=== PATIENT | female | born 1980 | race Caucasian/White ===

== ENCOUNTER 2019-01-24 06:43 | Observation (INO) ==
[2019-01-24] MEDS ORDERED: SODIUM CHLORIDE 1,000 ML IV STA ×2 (07:10→07:49)
[2019-01-24] MEDS ORDERED: ZOFRAN 4 MG/2 ML IVP STA (07:43)
--- NOTE | 2019-01-24 08:55 | CT ---
EXAM: CT abdomen pelvis with contrast HISTORY: Nausea, vomiting, diarrhea 3 days COMPARISON: None TECHNIQUE: CT abdomen pelvis performed with intravenous contrast. Coronal and sagittal reformatted images obtained. FINDINGS: Please refer to separate report CT chest regarding findings in the lower chest. No free a ir. No acute abnormalities of the bones. Mild degenerative change in the spine. Liver decreased in attenuation, consistent with hepatic steatosis, with areas of fatty sparing. Liver is enlarged. Ga llbladder unremarkable. Pancreas unremarkable. Spleen unremarkable. Adrenals unremarkable. No hyd ronephrosis. Sub centimeter hypodensity right kidney, too small to characterize. Bladder unremarkab le. Uterus unremarkable. 1.8 cm ovarian cyst or follicle. Small fat-containing periumbilical herni a. No lymphadenopathy or ascites. Stomach unremarkable. No dilated loops small bowel. Appendix ap pears normal. Colon unremarkable. No inflammatory stranding identified in the abdomen or pelvis. IMPRESSION: 1. No acute inflammatory process identified in the abdomen or pelvis. 2. Hepatic steatosis. Hepatomegaly. 3. 1.8 cm right ovarian cyst or follicle.
--- NOTE | 2019-01-24 09:02 | CT ---
EXAM: CTA CHEST HISTORY: Chest pain TECHNIQUE: CTA chest with intravenous contrast. PE protocol. Multiplanar images were provided with 3-D reconstructions. FINDINGS: No comparison. No pulmonary arterial filling defects are identified. Thoracic aorta is within normal limits. Judie l heart size. No pericardial effusion is seen. No consolidated pneumonia, vascular congestion, pneumothorax or pleural fluid. There is a 6.1 mm ant erior left apical pulmonary nodule which appears to have at least partial calcification. There is a high density 4.5 mm nodule near the midportion of the left major fissure in the upper aspect of the l ower lobe axial image 35. There is a tiny micro nodule measuring 3 mm in the posterior right upper l obe near the apex. The bones reveal no acute abnormality. There is subtle scoliosis. Osteophytic spurring in the mid t horacic spine is noted. See also same day CT abdomen and pelvis report. IMPRESSION: 1. No pulmonary arterial thromboembolism is identified. 2. Lungs are free of infiltrate. 3. A few scattered pulmonary nodules may represent evidence of old granulomatous disease. If the pa tient has risk factors for neoplasia, follow-up CT in 4 to 6 months can be considered.
--- NOTE | 2019-01-24 09:05 | ED.PDOC ---
General ED Provider: Dr. VASILIY MANZANO Chief Complaint: Nausea/Vomiting Stated Complaint: chest pain and abdominal pain Time Seen by Physician: 07:00 (nurse present) Mode of Arrival: Walk-In Information Source: Patient Exam Limitations: No limitations Primary Care Provider: CHARLEEN NEWMAN Nursing and Triage Documentation Reviewed and Agree: Yes Does patient meet sepsis criteria?: No System Inflammatory Response Syndrome: Not Applicable Sepsis Protocol: For patient's 13 years and over: Temp is 96.8 and below OR 101 and greater Pulse >90 BPM Resp >20/minute Acutely Altered Mental Status Are patient's symptoms suggestive of a new infection, such as: -Pneumonia -Skin, Soft Tissue -Endocarditis -UTI -Bone, Joint Infection -Implantable Device -Acute Abdominal Infection -Wound Infection -Meningitis -Blood Stream Catheter Infection -Unknown GI Complaint Exam - Abdominal Pain Complaint/Exam Onset: Gradual (no pelvic exam done) Duration: 3 days Symptoms Are: Still present Timing: Intermittent Initial Severity: Moderate Current Severity: Moderate Location of Pain: Suprapubic Character: Reports: Aching Aggravating: Reports: None Alleviating: Reports: None Associated Signs and Symptoms: Reports: Nausea (had had intermittent chest pain with no radiation.). Denies: Diaphoresis, Fever, Cough, Chest pain, Dizziness , Back pain, Constipation, Blood in stool, Dysuria, Urinary frequency, Decreased urine output, Decreased appetite, Vaginal bleeding, Vaginal discharge , Vomiting, Diarrhea, Sore throat, Decreased activity AAA Risk Factors: Reports: None Cardiac Risk Factors: Reports: None Ectopic Risk Factors: Reports: None Ovarian Torsion Risk Factors: Reports: None Surgical Obstruction Risk Factors: Reports: None Related Surgical History: Reports: None Patient Rh Status: Unknown Abdominal Findings: Present: None Differential Diagnoses: Appendicitis, Bowel Obstruction, Constipation, Gastroenteritis, Hepatitis, Pancreatitis, Irritable Bowel Syndrome, Pneumonia, Renal Colic, Ureteral Stone, UTI, Ovarian Cyst Quality Indicators for AMI: EKG in 10min. Quality Indicators for Cardiac Chest Pain: EKG in 10min. Review of Systems - Review Of Systems Constitutional: Reports: No symptoms Eyes: Reports: No symptoms Ears, Nose, Mouth, Throat: Reports: No symptoms Respiratory: Reports: No symptoms Cardiac: Reports: Chest pain GI: Reports: Abdominal pain, Nausea, Poor appetite, Poor fluid intake : Reports: No symptoms Musculoskeletal: Reports: No symptoms Skin: Reports: No symptoms Neurological: Reports: No symptoms Endocrine: Reports: No symptoms Hematologic/Lymphatic: Reports: No symptoms All Other Systems: Reviewed and Negative Past Medical History - Past Medical History Previously Healthy: Yes Endocrine: Reports: DM 2 Cardiovascular: Reports: None Respiratory: Reports: None Hematological: Reports: None Gastrointestinal: Reports: None Genitourinary: Reports: None Neuro/Psych: Reports: None Musculoskeletal: Reports: None Cancer: Reports: None Last Menstrual Period: 01/13/19 - Surgical History General Surgical History: Reports: None - Family History Family History: Reports: None - Social History Smoking Status: Former smoker Hx Substance Use: No Alcohol Screening: None - Immunizations Tetanus Shot up to Date: (UNKNOWN) Physical Exam - Physical Exam Appearance: Ill-appearing Ill-appearing: Mild Pain Distress: Mild Eyes: LIN, EOMI, Conjunctiva clear ENT: Ears normal, Nose normal, Oropharynx normal Respiratory: Airway patent, Breath sounds clear, Breath sounds equal, Respirations nonlabored Cardiovascular: RRR, Pulses normal, No rub, No murmur GI/: Tender (diffuse ), Bowel sounds hypoactive (no rebound or gaurding) Musculoskeletal: Normal strength, ROM intact, No edema, No calf tenderness Skin: Warm, Dry, Normal color Neurological: Sensation intact, Motor intact, Reflexes intact, Cranial nerves intact, Alert, Oriented Psychiatric: Affect appropriate, Mood appropriate Interpretation - Radiology Interpretation Radiology Interpretation By: Radiologist Radiology Results: Positive (fatty liver) Re-Evaluation - Re-Evaluation Time of Re-Evaluation: 09:00 Status: Improved Vital Signs Stable: Yes Appearance: NAD Lungs: Clear Skin: Warm and Dry Neuro: Alert and Oriented X3 CV: RRR - Re-Evaluation Time of Re-Evaluation: 09:11 Status: Improved Vital Signs Stable: Yes Pain Level: headache adressed Appearance: NAD Skin: Warm and Dry Neuro: Alert and Oriented X3 CV: RRR Physician Notification - Case Discussed Physician Notified: pmd Time of Notification: 09:11 Admit/Transition Orders Entered by ED Provider: Yes Admit To: Inpatient Critical Care Note - Critical Care Note Total Time (mins): 0 Course - Course Hematology/Chemistry: 01/24/19 07:20 01/24/19 07:20 Orders, Labs, Meds: Lab Review 01/24/19 01/24/19 01/24/19 07:00 07:20 07:20 WBC 11.93 H RBC 4.78 Hgb 14.3 Hct 42.8 MCV 89.5 MCH 29.9 MCHC 33.4 RDW Coeff of Neha 12.0 Plt Count 247 Immature Gran % (Auto) 0.6 Neut % (Auto) 82.6 Lymph % (Auto) 11.1 Cuming % (Auto) 4.8 Eos % (Auto) 0.6 Baso % (Auto) 0.3 Immature Gran # (Auto) 0.1 Neut # (Auto) 9.9 H Lymph # (Auto) 1.3 Cuming # (Auto) 0.6 Eos # (Auto) 0.1 Baso # (Auto) 0.0 Sodium 137.7 Potassium 3.61 Chloride 101.5 Carbon Dioxide 26.2 Anion Gap 13.61 BUN 9.8 Creatinine 0.76 Estimated GFR (MDRD) 85.00 BUN/Creatinine Ratio 12.89 Glucose 305.2 H Lactic Acid Calcium 9.75 Total Bilirubin 0.74 AST 30.4 ALT 35.4 H Alkaline Phosphatase 101.8 Total Creatine Kinase 58.1 Troponin I < 0.012 Total Protein 8.09 Albumin 4.60 Globulin 3.49 Albumin/Globulin Ratio 1.31 Amylase 45.9 Lipase 35.3 Procalcitonin Serum , Qual Urine Color Yellow Urine Clarity Cloudy Urine pH 5.5 Ur Specific Barney 1.025 Urine Protein 1+ Urine Glucose (UA) 2+ Urine Ketones Trace Urine Blood Trace-intact Urine Nitrite Negative Urine Bilirubin 1+ Urine Urobilinogen 0.2 Ur Leukocyte Esterase 1+ Urine Microscopic RBC 2-5 Urine Microscopic WBC 5-10 Ur Squamous Epith Cells 30-50 Amorphous Sediment 2+ Urine Bacteria 2+ Urine Mucus 1+ 01/24/19 01/24/19 01/24/19 07:20 07:20 07:20 WBC RBC Hgb Hct MCV MCH MCHC RDW Coeff of Neha Plt Count Immature Gran % (Auto) Neut % (Auto) Lymph % (Auto) Cuming % (Auto) Eos % (Auto) Baso % (Auto) Immature Gran # (Auto) Neut # (Auto) Lymph # (Auto) Cuming # (Auto) Eos # (Auto) Baso # (Auto) Sodium Potassium Chloride Carbon Dioxide Anion Gap BUN Creatinine Estimated GFR (MDRD) BUN/Creatinine Ratio Glucose Lactic Acid 1.82 Calcium Total Bilirubin AST ALT Alkaline Phosphatase Total Creatine Kinase Troponin I Total Protein Albumin Globulin Albumin/Globulin Ratio Amylase Lipase Procalcitonin < 0.05 Serum , Qual Negative Urine Color Urine Clarity Urine pH Ur Specific Barney Urine Protein Urine Glucose (UA) Urine Ketones Urine Blood Urine Nitrite Urine Bilirubin Urine Urobilinogen Ur Leukocyte Esterase Urine Microscopic RBC Urine Microscopic WBC Ur Squamous Epith Cells Amorphous Sediment Urine Bacteria Urine Mucus Orders Category Date Time Status EKG-(ED ONLY) Stat CARDIO 01/24/19 07:09 Completed NPO REMINDER: IMAGING ONCE CARE 01/24/19 07:10 Active NPO REMINDER: IMAGING ONCE CARE 01/24/19 07:15 Active ED IV/MEDIPORT/POWERPORT .ONCE EMERGENCY 01/24/19 07:09 Active AMYLASE Stat LAB 01/24/19 07:20 Completed CBC W/ AUTO DIFF Stat LAB 01/24/19 07:20 Completed COMPREHENSIVE METABOLIC PANEL Stat LAB 01/24/19 07:20 Completed CREATINE KINASE Stat LAB 01/24/19 07:20 Completed LACTIC ACID Stat LAB 01/24/19 07:20 Completed LIPASE Stat LAB 01/24/19 07:20 Completed PROCALCITONIN Stat LAB 01/24/19 07:20 Completed SERUM Stat LAB 01/24/19 07:20 Completed TROPONIN I Stat LAB 01/24/19 07:20 Completed URINALYSIS C & S IF INDICATED Stat LAB 01/24/19 07:00 Completed URINE CULTURE Stat LAB 01/24/19 07:00 Received 0.9 % Sodium Chloride [Saline Flush] MEDS 01/24/19 07:09 Active 1 syr IVF PRN PRN Ondansetron HCl/Pf [Zofran 4 mg/2 ml] MEDS 01/24/19 07:43 Discontinued 4 mg IVP ONCE STA Sodium Chloride 0.9% [Sodium Chloride] 1,000 ml MEDS 01/24/19 07:[address] ABDOMEN/PELVIS W CONTRAST Stat RADS 01/24/19 07:[address] CHEST PE PROTOCOL Stat RADS 01/24/19 07:15 Completed Medications Generic Name Dose Route Start Last Admin Trade Name Freq PRN Reason Stop Dose Admin Sodium Chloride 1 syr 01/24/19 07:09 01/24/19 07:50 Saline Flush IVF 1 syr PRN PRN Administration To flush IV Discontinued Medications Generic Name Dose Route Start Last Admin Trade Name Freq PRN Reason Stop Dose Admin Sodium Chloride 1,000 mls @ 1,000 mls/hr 01/24/19 07:49 01/24/19 07:51 Sodium Chloride IV 01/24/19 08:48 1,000 mls/hr BOLUS STA Administration Ondansetron HCl 4 mg 01/24/19 07:43 01/24/19 07:49 Zofran 4 Mg/2 Ml IVP 01/24/19 07:44 4 mg ONCE STA Administration Vital Signs: Temp Pulse Resp BP Pulse Ox 01/24/19 06:44 98.2 F 94 H 20 137/96 H 97 Departure - Departure Time of Disposition: 09:11 Disposition: ADMITTED INPATIENT Discharge Problem: Nausea, Fatty liver Chest pain Qualifiers: Chest pain type: unspecified Qualified Code(s): R07.9 - Chest pain, unspecified Condition: Good Pt referred to PMD for follow-up: Yes IPMP verified?: No Allergies/Adverse Reactions: Allergies No Known Drug Intolerances Adverse Reaction (Verified 01/24/19 06:55) Disposition Discussed With: Patient, Family
[2019-01-24] MEDS ORDERED: NORCO 10-325 PO STA (09:09)
[2019-01-24] MEDS ORDERED: HUMULIN R SUBCUT STA (09:16)
[2019-01-24] MEDS ORDERED: SODIUM CHLORIDE 1,000 ML IV SCH (09:30)
[2019-01-24 10:11] VITALS: BMI 48.5
[2019-01-24] MEDS: MORPHINE 4 MG/ML VIAL IVP PRN ×2 (12:01→18:34)
--- NOTE | 2019-01-24 12:26 | PCM ---
- Chief Complaint Chief Complaint: Chest pain and abdominal pain - History of Present Illness History of Present Illness: 38 yo female without current PCP saw me once on 01/17/19 w/ c/o left knee/leg pain x 8 months, worsening with time w/o injury. During that visit she was started on mobic and was instructed to return in 2 weeks. She presented to the ED this am at [address] Brennan. The patient arrived alone, ambulatory c/o abdominal pain, chest pain and N/V. Tem afebrile at 98.2, pulse 94, rr 20, bp 137/896, o2 97%. Labs completed and WBC 11.93, hgb 14.3, hct 42.8 , plt 247. CMP with sodium 137.7, cl 101.5, K+ 3.61. Cr 0.76, gfr 85. Troponin #1 was negative. Will get 2 more sets. Alk phos normal, AST 30.4 and normal, ALT 35.4 and mildly elevated. Amylase and lipase were normoal at 45.9 and 35.3. Her UA showed trace ketones, trace blood, negative nitrite. Micro rbc 2-5, wbc 5-10, squam 30-50 suggesting poor sample. Lactic acid normal at 1.82, procalc negative at 0.05. Negative test. Patient had CT of chest/abd pelvis. CTA of chest completed no PE, no infiltrate, scattered nodules of old granulomatous disease. CT abd/pelvis no acute inflammatory process. Fatty liver, enlarged Liver, 1.8cm ovarian cyst/follicle. She reported gradual onset of symptoms over last 3 days, intermittent symptoms,moderate severity,suprapubic pain, aching. Nausea, intermittent chest pain,non radiating. +Nausea. No fever. Ddx in ED was appendicitis, bowel obs, constipation, Gastroenteritis, hepatitis, pancreatitis, ibs, pneumonia, renal colic, stone, uti, ovarian cyst. ROS reviewed abdominal pain, nausea, poor appetite, poor fluid intake. Histor of DM2, apparently poorly regulated. LMP. +COBB. Exam from ER normal Resp, normal CV, tenderness in abd with hypoactive sounds. Will await culture, will treat with IV rocephin to cover for UTI. Will also check 2 more sets of enzymes, get stress test in am tomorrow. With knee pain we will use a chemical stress. Await urine culture. Patient and fiance present in room 118. MS Kale guadalupe present with me entirety of encounter. Patient complained of N/V/D, suprapubic pain and "migraine" left congregation, left occipital, left neck with trapezius tenderness on Left. She has no obvious chest pain, no anginal chest pain. NOtes some epigastric pain at times. Complicated by morbid obesity. She has no CP now, no dizziness now but has had this over the last few days. Vague symptoms to include N/V/D, upset stomach, suprapubic pain, frequency, hesitancy, burning, no vaginal discharge. Sx x 4 days, migrainous COBB which is more likely tension COBB x 2 days. 48 hours decreased PO intake. She is not checking sugars. Moved locally 07/2018 from [facility]. History of lung cancer ~11-12 years ago, unknown etiology per patient, no further f/u per patient. COBB 8/10 no photophobia, no phonophobia. + Nausea. She has had ?Gastroenteritis over the last few days. Mild dehydration is possible. NO imaging of head in last few years. She has not eaten or been out of bed in 48 hours. She tried to get to work today, got sick at work and had to leave, went to ED due to dizzy/COBB. Glucose was >300 in ED> - Review of Systems Constitutional: chills, weakness, sweats, fatigue, loss of appetite. No: fever , other Eyes: No: blurred vision, double-vision, discharge, itching, pain, redness, photophobia, other Ears: No: pain, bleeding, drainage, ringing, hearing loss, other Nose: congestion. No: bleeding, discharge, other Throat: pain. No: swelling, voice change, other Mouth: No: bleeding, pain, swelling, other Respiratory: cough, shortness of air. No: wheeze, hemoptysis, pain with breathing, other Cardiovascular: chest pain (reported in ED, not present now, poorly localized and she pointed to epigastric region. ). No: left arm pain, diaphoresis, PND, orthopnea, edema, palpitations, syncope, other Gastrointestinal: abdominal pain, nausea, vomiting, diarrhea. No: other, melena , hematemesis, hematochezia, dysphagia, constipation Genitourinary: dysuria, hematuria, frequency, incontinence. No: flank pain, vaginal discharge, abnormal bleeding, pelvic pain, other Neurological: headache, dizziness. No: other, seizure, numbness, weakness, speech difficulty, problems with walking, tremor, fainting Musculoskeletal: No: pain, swelling in joints, other Skin: No: rash, pruritus, lacerations, wounds, bruising, other Immunology: No: hives, itching, frequent infections, difficulty healing, other Hematology: No: easy bruising, easy bleeding, swollen glands, other Endocrine: No: weight changes, cold intolerance, heat intolerance, excessive thirst, excessive hunger, polyuria, other Psychiatric: No: depression, anxiety, sleeplessness, hopelessness, suicidal, hallucinations, other Habits: tobacco use (former user, no tobacconow. ). No: substance use, alcohol use, other - Past Medical History Past Medical History: Cancer of l chandan, diabetes mellitus, obesity BMI 48.5. - Past Surgical History Past Surgical History: CS x 3 and D+C - Allergies Allergies/Adverse Reactions: Allergies Allergy/AdvReac Type Severity Reaction Status Date / Time No Known Drug Intolerances AdvReac Verified 01/24/19 06:55 - Medications Medications: Medications Generic Name Dose Route Start Last Admin Trade Name Freq PRN Reason Stop Dose Admin Sodium Chloride 1,000 mls @ 75 mls/hr 01/24/19 09:30 01/24/19 09:54 Sodium Chloride IV 75 mls/hr .[id number] ANUSHA Administration Morphine Sulfate 4 mg 01/24/19 11:03 01/24/19 12:01 Morphine 4 Mg/Ml Vial IVP 4 mg Q6H PRN Administration MODERATE PAIN Sodium Chloride 1 syr 01/24/19 07:09 01/24/19 07:50 Saline Flush IVF 1 syr PRN PRN Administration To flush IV - Family History Past Family History: Mother: allergic rhinitis. cardiac disease, diabetes, HTN, hyperthyroid. Father: Cardiac disease, HTN. MGM: Blood disease, Diabetes, cancer. Brother: Diabetes. PGM: Diabetes, cancer. PGF: Diabetes - Social History Past Social History: Former smoker, no substance use. No ETOH. - Body Composition Height: 5 ft 6 in Weight: 300 lb 9.6 oz Body Mass Index (BMI): 48.5 - Physical Examination HEENT: Vital Signs - 24 hr 01/24/19 01/24/19 01/24/19 06:44 09:38 14:00 Temperature 98.2 F 97.7 F 98.0 F Pulse Rate 94 H 82 70 Pulse Rate [ 80 Apical] Respiratory 20 18 16 Rate Blood Pressure 137/96 H 119/71 O2 Sat by Pulse 97 100 94 L Oximetry Constitutional: Appearance-Appears to be in pain acute distress, Consistent with stated age. Orientation- Oriented x 3, alertGait-Normal pace, normal arm movement. Build and Nutrition-[morbidly obese BMI 48.5.] General- Patient is pleasant and cooperative with the interview and exam. Integumentary: General-No rashes, ulcers or lesions. Palpation- Normal skin moisture/turgor. Skin is warm to touch, appropriate. Capillary refill is normal bilateral Upper and lower extremity. Head/Neck: Head- normocephalic and atraumatic. Neck- without visible/palpable lumps or pulsations. Palpation- No bony tenderness about head/neck along frontal, occipital, temporal, parietal, mastoid, jawline, zygoma, orbit or any other location. NO temporal artery tenderness. No TMJ tenderness. Neck Supple. Thyroid-No thyromegaly, no nodules Eye: Bilaterally PERRLA, EOMI. No discharge. Upper and lower eyelids are normal. Sclera/conjunctiva normal without discharge. Cornea is normal and clear. Lens is normal. Eyeball appears normal. No ciliary flushing, no conjunctival injection. ENMT: Pinna- normal without tenderness or erythema. External auditory canal Left- normal without erythema or discharge, no excessive cerumen. External auditory canal Right-normal without erythema or discharge, no excessive cerumen. TM left- Bhakta/pearly, normal light reflex and anatomy TM Right- Bhakta/ pearly, normal light reflex and anatomy Hearing Assessment-normal to conversational speech. Nose and sinus- No sinus tenderness along frontal/ maxillary region. External appearance normal and midline. Nares- bilateral quiet airflow, no discharge. Nasal mucosa- No bleeding noted and no ulcerations observed. Clover, moist. Turbinates non boggy. Lips- normal color, moist without cracks/lesions Oral Cavity/Palate- hard/soft palate intact without lesions, oral mucosa pink and moist. Oropharynx- no pharyngeal erythema, Uvula midline. No post nasal drip. No exudate. Salivary glands- Non tender to palpation CHEST/LUNG: Inspection- symmetric chest wall no pectus deformity. Normal effort , no distress, no use of accessory muscles. Palpation- nontender sternum,tender along second intercostal space through fourth intercostal space anterior clavicular line. No abnormal pulsations. Auscultation- Breath sounds normal throughout all lung phelan. Normal tracheal sounds, Normal bronchial sounds overlying sternum, Bronchovessicular sounds normal between scapulae posteriorly , Normal vessicular breath sounds heard throughout periphery. Lungs are clear today. Adventitious sounds- No wheezes, rales, rhonchi. CARDIOVASCULAR: Carotid artery- normal, no bruits or abnormal pulsations. Jugular vein- no pulsations. Palpation/Percussion- Normal PMI, no palpable thrill Auscultation- Regular rate and rhythm. No murmur noted in sitting, supine positions. Extremities- no digital clubbing, cyanosis, edema, increased warmth. ABDOMEN: Inspection- normal and no visible pulsations. Normal contour. Auscultation- Bowel sounds normal, no abdominal bruits. Palpation/Percussion- soft, tender suprapubic tenderness, no rebound tenderness, no rigidity (guarding ), no jar tenderness, no masses. Liver- hepatomegaly, 3 fingers below costal margin difficult exam secondary to habitus. Spleen no splenomegaly, Hernias- none. Rectal not examined. Peripheral Vascular: Upper extremity Left- Normal temperature with pink nailbeds and no ulcerations. Upper extremity Right- Normal temperature with pink nailbeds and no ulcerations. Lower extremity- Normal temperature with pink nailbeds and no ulcerations. DP pulses 2+ bilaterally. Pedal hair intact. Normal capillary refill. Edema- No edema. Musculoskeletal: Generalized-No generalized swelling or edema of extremities, no digital clubbing or cyanosis, neurovascularly intact all four extremities. Upper extremity- Symmetrical posture. No visible deformity. Normal sensation along medial and lateral upper extremity proximally and distally. NO tenderness overlying shoulder, lateral/medial epicondyle. Business Account Executive 5/5 and strength 5/5 bilateral UE. Elbow palpated, no tenderness overlying olecranon. Normal supination, pronation to active/passive ROM and to resisted rotation. Bicep insertion/tricep insertion appear normal without obvious pathology. Rotator cuff evaluated and intact. Normal wrist ROM bilaterally. Normal hand movement, intrinsic muscles of hands normal. No tenderness to palpation of hands/wrists/ elbows. Lower extremity- Hip: Not tender to palpation, no pain, no swelling, edema or erythema of surrounding tissue, normal strength and tone. Normal appearing hip ROM bilaterally without pain. Knee: Knee ROM normal. No tenderness overlying trochanters, no tenderness about patella, quad tendon, patellar tendon. No tenderness at tibial tuberosity. Ankle: normal ROM not tender to palpation along medial/lateral malleolus. Foot: Normal movement of toes, no tenderness bilateral feet/toes. Normal foot type. Spine/Ribs- No deformities, masses. Localized paraspinal tenderness, no known fractures, normal strength, Normal ROM. Normal stability No tenderness along C/T /L spine. Normal appearing ROM about spine. Neurological: General- Moves all 4 extremities symmetrically. Symmetrical face and body posture. Cranial nerves- individually evaluated II-XII and intact. PERRLA, Normal EOMI, visual/special senses appear intact, Face is symmetrical and normal sensation/movement, normal tongue, normal strength/posture of neck musculature. Reflexes- intact with DTR 2+ patellar, Achilles, bicep, brachial, tricep. Ankle clonus normal with 2 beats. Strength- 5/5 bilateral UE and LE. Soft touch- intact bilateral UE and LE. Temperature sensation- intact bilateral UE and LE. Neuropsych: Oriented- Person, place, time. (AAOx3), Mood/affect- normal and congruent. Able to articulate well. Speech-Normal speech, normal rate, normal tone, normal use of language, volume and coherence. Thought content- normal with ability to perform basic computations and apply abstract thought/reason. Associations- intact, no SI/HI, no hallucinations, delusions, obsessions. Judgment/insight- Appropriate. Memory-Recall intact, remote and recent memory intact. Knowledge- Age appropriate fund of knowledge, concentration and attention span normal. Lymphatic: Head/Neck- normal size and non tender to palpation. Axillary- normal size and non tender to palpation. Femoral and Inguinal- normal size and non tender to palpation. - Lab/Tests/Diagnostic Imaging Lab/Tests/Diagnostic Imaging: Laboratory Tests 01/24/19 01/24/19 01/24/19 07:00 07:20 07:20 WBC 11.93 H RBC 4.78 Hgb 14.3 Hct 42.8 MCV 89.5 MCH 29.9 MCHC 33.4 RDW Coeff of Neha 12.0 Plt Count 247 Immature Gran % (Auto) 0.6 Neut % (Auto) 82.6 Lymph % (Auto) 11.1 [place] % (Auto) 4.8 Eos % (Auto) 0.6 Baso % (Auto) 0.3 Immature Gran # (Auto) 0.1 Neut # (Auto) 9.9 H Lymph # (Auto) 1.3 [place] # (Auto) 0.6 Eos # (Auto) 0.1 Baso # (Auto) 0.0 Sodium 137.7 Potassium 3.61 Chloride 101.5 Carbon Dioxide 26.2 Anion Gap 13.61 BUN 9.8 Creatinine 0.76 Estimated GFR (MDRD) 85.00 BUN/Creatinine Ratio 12.89 Glucose 305.2 H Lactic Acid Calcium 9.75 Total Bilirubin 0.74 AST 30.4 ALT 35.4 H Alkaline Phosphatase 101.8 Total Creatine Kinase 58.1 Troponin I < 0.012 Total Protein 8.09 Albumin 4.60 Globulin 3.49 Albumin/Globulin Ratio 1.31 Amylase 45.9 Lipase 35.3 Procalcitonin Serum , Qual Urine Color Yellow Urine Clarity Cloudy Urine pH 5.5 Ur Specific [place] 1.025 Urine Protein 1+ Urine Glucose (UA) 2+ Urine Ketones Trace Urine Blood Trace-intact Urine Nitrite Negative Urine Bilirubin 1+ Urine Urobilinogen 0.2 Ur Leukocyte Esterase 1+ Urine Microscopic RBC 2-5 Urine Microscopic WBC 5-10 Ur Squamous Epith Cells 30-50 Amorphous Sediment 2+ Urine Bacteria 2+ Urine Mucus 1+ 01/24/19 01/24/19 01/24/19 07:20 07:20 07:20 WBC RBC Hgb Hct MCV MCH MCHC RDW Coeff of Neha Plt Count Immature Gran % (Auto) Neut % (Auto) Lymph % (Auto) [place] % (Auto) Eos % (Auto) Baso % (Auto) Immature Gran # (Auto) Neut # (Auto) Lymph # (Auto) [place] # (Auto) Eos # (Auto) Baso # (Auto) Sodium Potassium Chloride Carbon Dioxide Anion Gap BUN Creatinine Estimated GFR (MDRD) BUN/Creatinine Ratio Glucose Lactic Acid 1.82 Calcium Total Bilirubin AST ALT Alkaline Phosphatase Total Creatine Kinase Troponin I Total Protein Albumin Globulin Albumin/Globulin Ratio Amylase Lipase Procalcitonin < 0.05 Serum , Qual Negative Urine Color Urine Clarity Urine pH Ur Specific [place] Urine Protein Urine Glucose (UA) Urine Ketones Urine Blood Urine Nitrite Urine Bilirubin Urine Urobilinogen Ur Leukocyte Esterase Urine Microscopic RBC Urine Microscopic WBC Ur Squamous Epith Cells Amorphous Sediment Urine Bacteria Urine Mucus CTA of chest completed no PE, no infiltrate, scattered nodules of old granulomatous disease. If malignancy repeat CT chest in 4-6 months. She had malignancy, I will repeat in 4-[address] abd/pelvis no acute inflammatory process. Fatty liver, enlarged Liver, 1.8cm ovarian cyst/follicle. Echo: NEgative, EF normal. Dobutamine Stress Echo, negative for ischemia. - Assessment (1) Suprapubic pain Status: Acute Code(s): R10.30 - LOWER ABDOMINAL PAIN, UNSPECIFIED SNOMED Code(s): 588519584 (2) Chest pain Status: Acute Code(s): R07.9 - CHEST PAIN, UNSPECIFIED SNOMED Code(s): 80465652 (3) Diabetes mellitus with hyperglycemia Status: Acute Code(s): E11.65 - TYPE 2 DIABETES MELLITUS WITH HYPERGLYCEMIA SNOMED Code(s): 38791164, 12570440 (4) BMI 45.0-49.9, adult Status: Acute Code(s): Z68.42 - BODY MASS INDEX (BMI) 45.0-49.9, ADULT SNOMED Code(s): 122814802, 043449200 (5) Diarrhea Status: Acute Code(s): R19.7 - DIARRHEA, UNSPECIFIED SNOMED Code(s): 56380955 (6) Nausea Status: Acute Code(s): R11.0 - NAUSEA SNOMED Code(s): 805114088 - Plan Plan: Suprapubic pain: N/V/D, dysuria, frequency and hesitancy consistent with cystitis. However with N/V/D considered Gastroenteritis in addition to pyelonephritis. CT imaging reviewed and the patient has no major findings on abd /pelvis CT. ?Ovarian cyst/mittelschmerz. DDX included UTI: Simple uncomplicated cystitis, Urethritis, vaginitis, Interstitial cystitis, also possible but less likely PID,nephrolithiasis/pyelonephritis. Discussed various ddx, discussed sexual activity and discussed treatment options. She denied hematuria, denied vaginal discharge. Discussed UTI is typically a dx of history with clinical dx more important than UA. Discussed antibiotic allergies. Will send urine for culture. We will F/U with these lab results and update medications as needed. Will treat with 5 days of abx as this seems to be more uncomplicated cystitsi. Reminded patient if taking antibiotics and using control at the same time it is important to use a backup method of control for 2-4 weeks as antibiotics can decrease efficacy of the control. - Admit to observation - Telemetry - [place] body weight/Adjusted: [place] 131 lb, adjusted 198 lb. Maintenance fluid 100-130 ml/hour. I will use 120 ml/hour overnight. - Stress test in the am (THIS WAS DONE THIS PM) - echo in the am (THIS WAS DONE THIS PM) - Rocephin 1 gram IV daily - Await urine culture. Consider d/c tomorrow with bactrim DS BID until culture returns. - CBC in am - Monitor accucheck Leukocytosis: Mild. - CBC in the am Chest Pain: DDX for chest pain is vast. We discussed typical examination in history findings for chest pain and heart attack today. We discussed that multiple organ systems can be the cause for this complaint. We reviewed possible causes to include cardiac etiologies: ACS, pericarditis, pericardial effusion, respiratory issues to include bronchitis/asthma/COPD/bronchospasm, PE (No SOA, no DU, LOW LIKELIHOOD OF PE/DVT based on Wells score 0 (1.3%)), GI problems to include esophageal spasm/achalasia, Hiatal hernia, GERD, PUD, Liver disease/pancreatic disease, renal disease. Will check labs as listed. We discussed risks and benefits to getting EKG today, we reviewed aspirin and nitroglycerin. Troponin negative x 1. This is not cardiac in nature. We will obtain 2 more sets of enzymes and stress test in the am. When negative likely d /c tomorrow. Patient actually had stress test this pm and it was normal, echo was normal. The patient likely has costochondritis as she has reproducible chest wall pain. - Cardiac Enzymes x 2 sets - Dobutamine Stress echo negative for ischemia. - Echocardiogram negative. Diabetes: Poorly controlled. A1C ordered and 8.81. She will be d/c on metformin and steglatro. We will f/u with her sugars as outpatient. We ave discussed lisinopril, we will get her a pneumonia vaccine prior to d/c. For now q 4 hours accucheck with SSI. - SSI if >200 - Q 4 hours accucheck DVT Prophylaxis: subcutaneous 40mg lovenox. Diet: ADA Diabetic. Activity: Up ad bogdan. Disposition: Suspect d/c in the am with negative stress, negative echo, vitals stable, labs look good. Diabetes is out of control but <10 for A1C. Abdominal pain could be from ovulation pain, could be from UTI. Pat rendon, consider d/c with bactrim DS tomorrow BID x 5 days. >70 minutes spent on this admission today.
[2019-01-24] MEDS ORDERED: LOVENOX SUBCUT SCH (12:37)
[2019-01-24] MEDS ORDERED: ROCEPHIN 1 GM PREMIX 1 GM in PREMIX 50 ML D5W 1 BAG IV SCH (13:00)
[2019-01-24] MEDS ORDERED: DOBUTAMINE 500 MG-D5W 250 ML 250 ML IV ONE (13:07)
[2019-01-24] MEDS ORDERED: ATROPINE SULFATE PFS ONE (13:07)
--- NOTE | 2019-01-24 14:18 | DOBSTECHO ---
Date of Test: 01/24/19 Ordering Physician: DR. CHARLEEN NEWMAN Smoking History: QUIT 11 YRS AGO Reason for Examination: CHEST PAIN, HX LUNG CA, DM2, LOCALIZED CHEST PAIN 2ND INTERCOSTAL SPACE Current Medications: MELOXICAM Height: 66" Weight: 300 LBS Target Heart Rate: 153/181 S-T Segment Stage Time HR BPM BP MMHG Rhythm +/- Elevation Depression Symptoms Control Sitting 68 132/92 SR X NONE Dobutamine 250mg/D5W 5cmg/KG/mn 10cmg/KG/mn 3:00 85 138/100 SR X NONE 15cmg/KG/mn 1:27 111 SR X NONE 20cmg/KG/mn 25cmg/KG/mn 30cmg/KG/mn 35cmg/KG/mn 40cmg/KG/mn 3 MIN POST INFUSION z 75 168/98 SR X ELEVATED BLOOD PRESSURE WITH DOBUTAMINE 9 MIN POST INFUSION z 60 128/92 SR X DURATION OF INFUSION 4:27 MAXIMUM HEART RATE REACHED 111 BPM Interpretation: 1. NO EVIDENCE OF ISCHEMIA FROM RESTING HEART RATE 68 BPM TO 111 BPM 2. NO CHEST PAIN OR DISCOMFORT EXCEPT FOR CONSISTENT LOCALIZED PAIN, 2ND INTERCOSTAL SPACE 3. NO ARRHYTHMIAS NORMAL LEFT VENTRICULAR CONTRACTILITY--RESTING AND POST EXERCISE MTDD
--- NOTE | 2019-01-24 14:21 | ECHOSTRESS ---
Date of Exam: 01/24/19 Ordering Physician: DR. CHARLEEN NEWMAN Reason for Echo: CHEST PAIN, HX LUNG CA, DM2, DOBUTAMINE STRESS--NO ISCHEMIA M-Mode Normal Adult Results LV Dimensions Normal Adult Results AoV Opening excursions >1.6 LVEDD-base- 3.5-5.8 Ao root dimensions 2.0-3.7 LVESD-base- 3.1-4.6 L. Atrium dimensions 1.9-3.8 Post. Wall thickness 0.8-1.1 IV septum (thickness) 0.7-1.2 Post. Wall excursion 0.72-1.3 Septal motion Systolic motion R. Ventricular cavity 1.5-2.0 LVEF 60% Paradoxical septal wall motion 2-D: NORMAL LEFT VENTRICULAR CONTRACTILITY--RESTING AND WITH DOBUTAMINE INFUSION M-MODE: MV: AV: TV: PV: CHAMBER SIZE: WALL MOTION: NORMAL LEFT VENTRICULAR CONTRACTILITY--RESTING AND WITH DOBUTAMINE INFUSION PERICARDIUM: INTERPRETATION: 1. NORMAL LEFT VENTRICULAR CONTRACTILITY--RESTING AND WITH DOBUTAMINE INFUSION MTDD
--- NOTE | 2019-01-24 14:26 | ECHO2D ---
Date of Exam: 01/24/19 Ordering Physician: DR. CHARLEEN NEWMAN Room #: 118 Reason for Echo: CHEST PAIN, HX LUNG CA, DM2 M-Mode Normal Adult Results LV Dimensions Normal Adult Results AoV Opening excursions >1.6 >1.6 LVEDD-base- 3.5-5.8 4.5 Ao root dimensions 2.0-3.7 3.8 LVESD-base- 3.1-4.6 L. Atrium dimensions 1.9-3.8 4.2 Post. Wall thickness 0.8-1.1 1.3 IV septum (thickness) 0.7-1.2 1.2 Post. Wall excursion 0.72-1.3 NORMAL Septal motion NORMAL Systolic motion R. Ventricular cavity 1.5-2.0 NORMAL LVEF 60% 50 -55% Paradoxical septal wall motion NORMAL 2-D : 2-D M Mode Echocardiogram was performed using apical four chamber and left parasternal long and short axis views. Mitral, tricuspid and aortic valves appear to be normal. Contractility of the left ventricle seems to be normal, so is the cavity size. ENLARGED LEFT ATRIAL CAVITY. Aortic root appears to be normal. There is no pericardial effusion. There is no thrombus noted in the left ventricular or left aortic cavity. No mitral valve prolapse noted. M-MODE: MV: NORMAL AV: NORMAL TV: NORMAL PV: CHAMBER SIZE: ENLARGED LEFT ATRIAL CAVITY WALL MOTION: NORMAL PERICARDIUM: NORMAL INTERPRETATION: 1. BORDERLINE LEFT VENTRICULAR HYPERTROPHY WITH ENLARGED LEFT ATRIAL CAVITY 2. NORMAL LEFT VENTRICULAR CONTRACTILITY 3. NORMAL VALVES MTDD
--- NOTE | 2019-01-24 17:08 | CT ---
EXAM: CT Head HISTORY: Headache COMPARISON: None TECHNIQUE: CT head performed without contrast FINDINGS: There is no mass effect, midline shift, or intracranial hemmorhage. Bhakta white differenti ation is preserved. There is no extra-axial collection. The ventricles, sulci, and basal cisterns a re patent and symmetric. There is no depressed calvarial fracture. The mastoid air cells are clear. The visualized paranasal sinuses are clear. IMPRESSION: No acute intracranial abnormality.
[2019-01-24] MEDS: SODIUM CHLORIDE 1,000 ML IV SCH ×2 (19:05→23:07)
[2019-01-24 21:40] VITALS: TEMP 97.9
[2019-01-25 05:15] VITALS: BP 123/77
--- NOTE | 2019-01-25 07:42 | PCM.DC ---
Final Diagnosis: Chest pain (Acute): NON CARDIAC, RESOLVED Diabetes mellitus with hyperglycemia (Chronic): Poorly controlled Diarrhea (RESOLVED) Nausea (RESOLVED) Suprapubic pain (IMPROVING): ON abx, awaiting culture. Headache (Acute): Resolved. Morbid obesity: (1) Suprapubic pain Status: Acute Code(s): R10.30 - LOWER ABDOMINAL PAIN, UNSPECIFIED SNOMED Code(s): 712025881 (2) Chest pain Status: Acute Code(s): R07.9 - CHEST PAIN, UNSPECIFIED SNOMED Code(s): 32671120 (3) Diabetes mellitus with hyperglycemia Status: Acute Code(s): E11.65 - TYPE 2 DIABETES MELLITUS WITH HYPERGLYCEMIA SNOMED Code(s): 40622629, 82745653 (4) BMI 45.0-49.9, adult Status: Acute Code(s): Z68.42 - BODY MASS INDEX (BMI) 45.0-49.9, ADULT SNOMED Code(s): 897499114, 978980116 (5) Diarrhea Status: Acute Code(s): R19.7 - DIARRHEA, UNSPECIFIED SNOMED Code(s): 49013442 (6) Nausea Status: Acute Code(s): R11.0 - NAUSEA SNOMED Code(s): 061444140 Reason for Hospitalization: Chest pain, Headache, suprapubic pain, hyperglycemia. Prognosis at Discharge: Diabetes/sugars better controlled COBB resolved Abdominal pain N/V/D resolved Suprapubic pain improving Chest pain resolved. Condition at Discharge: Stable/improved. Maximized health with hospitalization. COBB resolved, BG better controlled, Suprapubic pain improving, chest pain resolved, afebrile throughout entirety of stay. Vitals stable. She slept well overnight, good uout, no stools in hospital stay. Echo/stress test negative, CT head negative, labs this am negative. Pending urine culture. Medications at Discharge: Ambulatory Orders Medication Instructions Recorded Ertugliflozin Pidolate [Steglatro] 5 mg PO DAILY 30 Days #30 tablet 01/25/19 Metformin HCl 1,000 mg PO DIRECTED #60 tablet 01/25/19 Sulfamethoxazole/Trimethoprim 1 tab PO Q12HR 5 Days #10 tablet 01/25/19 [Bactrim Ds 800/160 mg] Lab/Diagnostics: Laboratory Last Values WBC 9.11 K/ul (4.6-10.2) 01/25/19 04:43 RBC 4.16 10^6/ul (4.20-5.40) L 01/25/19 04:43 Hgb 12.4 g/dl (12.0-16.0) 01/25/19 04:43 Hct 37.7 % (37.0-47.0) 01/25/19 04:43 MCV 90.6 fl (81.0-99.0) 01/25/19 04:43 MCH 29.8 pg (27.0-31.0) 01/25/19 04:43 MCHC 32.9 (31.8-35.4) 01/25/19 04:43 RDW Coeff of Neha 12.3 % (11.6-14.8) 01/25/19 04:43 Plt Count 223 10^3/uL (140-440) 01/25/19 04:43 Immature Gran % (Auto) 0.5 % (0.0-5.0) 01/25/19 04:43 Neut % (Auto) 69.0 01/25/19 04:43 Lymph % (Auto) 21.8 (10.0-50.0) 01/25/19 04:43 [place] % (Auto) 6.9 (0-10) 01/25/19 04:43 Eos % (Auto) 1.4 % (0.0-7.0) 01/25/19 04:43 Baso % (Auto) 0.4 % (0.0-3.0) 01/25/19 04:43 Immature Gran # (Auto) 0.1 (0.0-1.0) 01/25/19 04:43 Neut # (Auto) 6.3 K/ul (2.0-6.9) 01/25/19 04:43 Lymph # (Auto) 2.0 K/uL (0.60-3.4) 01/25/19 04:43 [place] # (Auto) 0.6 K/uL (0.4-2.0) 01/25/19 04:43 Eos # (Auto) 0.1 K/ul (0.0-0.7) 01/25/19 04:43 Baso # (Auto) 0.0 K/uL (0-0.2) 01/25/19 04:43 Sodium 137.2 mmol/L (134.5-145) 01/25/19 04:43 Potassium 3.59 mmol/L (3.5-5.1) 01/25/19 04:43 Chloride 106.2 mmol/L (98-107) 01/25/19 04:43 Carbon Dioxide 26.5 mmol/L (22-30.0) 01/25/19 04:43 Anion Gap 8.09 01/25/19 04:43 BUN 10.4 mg/dL (7-17) 01/25/19 04:43 Creatinine 0.70 mg/dL (0.60-1.30) 01/25/19 04:43 Estimated GFR (MDRD) 93.00 mL/min 01/25/19 04:43 BUN/Creatinine Ratio 14.85 01/25/19 04:43 Glucose 183.7 mg/dL (74-106) H D 01/25/19 04:43 Hemoglobin A1c 8.81 (4.0-6.0) H 01/24/19 07:20 Lactic Acid 1.82 mmol/L (0.7-2.1) 01/24/19 07:20 Calcium 8.66 mg/dL (8.4-10.2) 01/25/19 04:43 Total Bilirubin 0.46 mg/dL (0.2-1.3) 01/25/19 04:43 AST 23.6 U/L (14-36) 01/25/19 04:43 ALT 31.5 U/L (0-35) 01/25/19 04:43 Alkaline Phosphatase 75.5 U/L (38-126) D 01/25/19 04:43 Total Creatine Kinase 41.7 U/L (30-135) 01/24/19 23:15 Troponin I < 0.012 ng/ml (0.0000-0.120) 01/24/19 23:15 Total Protein 6.43 g/dL (6.3-8.2) 01/25/19 04:43 Albumin 3.58 g/dL (3.5-5.0) 01/25/19 04:43 Globulin 2.85 01/25/19 04:43 Albumin/Globulin Ratio 1.25 01/25/19 04:43 Amylase 45.9 U/L (30-110) 01/24/19 07:20 Lipase 35.3 U/L (23-300) 01/24/19 07:20 Procalcitonin < 0.05 ng/mL (0.09) 01/24/19 07:20 Serum , Qual Negative (NEGATIVE) 01/24/19 07:20 Urine Color Yellow (YELLOW) 01/24/19 14:00 Urine Clarity Clear (CLEAR) 01/24/19 14:00 Urine pH 5.5 (5-9) 01/24/19 14:00 Ur Specific [place] 1.015 (1.005-1.030) 01/24/19 14:00 Urine Protein Negative (NEGATIVE) 01/24/19 14:00 Urine Glucose (UA) Trace (NEGATIVE) 01/24/19 14:00 Urine Ketones 1+ (NEGATIVE) 01/24/19 14:00 Urine Blood Negative (NEGATIVE) 01/24/19 14:00 Urine Nitrite Negative (NEGATIVE) 01/24/19 14:00 Urine Bilirubin Negative (NEGATIVE) 01/24/19 14:00 Urine Urobilinogen 0.2 (0.2) 01/24/19 14:00 Ur Leukocyte Esterase Negative (NEGATIVE) 01/24/19 14:00 Urine Microscopic RBC 2-5 (0-2) 01/24/19 07:00 Urine Microscopic WBC 5-10 (0-2) 01/24/19 07:00 Ur Squamous Epith Cells 30-50 (0-5) 01/24/19 07:00 Amorphous Sediment 2+ (NOT PRESENT) 01/24/19 07:00 Urine Bacteria 2+ (NOT PRESENT) 01/24/19 07:00 Urine Mucus 1+ (NOT PRESENT) 01/24/19 07:00 CTA of chest completed no PE, no infiltrate, scattered nodules of old granulomatous disease. If malignancy repeat CT chest in 4-6 months. She had malignancy, I will repeat in 4-[address] abd/pelvis no acute inflammatory process. Fatty liver, enlarged Liver, 1.8cm ovarian cyst/follicle. Echo: NEgative, EF normal. Dobutamine Stress Echo, negative for ischemia. CT head: Negative for acute process. Urine culture negative to date. Education Provided to Patient and Family: 1. Steglatro 2. Metformin 3. Diabetes 4. Weight Loss 5. Blood sugar checks Follow-ups: 1. Keep appt with Dr. Peguero on 02/02/19. Disposition: HOME SELF-CARE Hospital Course: 38 yo female without current PCP saw me once on 01/17/19 w/ c/o left knee/leg pain x 8 months, worsening with time w/o injury. During that visit she was started on mobic and was instructed to return in 2 weeks. She presented to the ED this am at [address] Brennan. The patient arrived alone, ambulatory c/o abdominal pain, chest pain and N/V. Tem afebrile at 98.2, pulse 94, rr 20, bp 137/896, o2 97%. Labs completed and WBC 11.93, hgb 14.3, hct 42.8 , plt 247. CMP with sodium 137.7, cl 101.5, K+ 3.61. Cr 0.76, gfr 85. Troponin #1 was negative. Will get 2 more sets. Alk phos normal, AST 30.4 and normal, ALT 35.4 and mildly elevated. Amylase and lipase were normoal at 45.9 and 35.3. Her UA showed trace ketones, trace blood, negative nitrite. Micro rbc 2-5, wbc 5-10, squam 30-50 suggesting poor sample. Lactic acid normal at 1.82, procalc negative at 0.05. Negative test. Patient had CT of chest/abd pelvis. CTA of chest completed no PE, no infiltrate, scattered nodules of old granulomatous disease. CT abd/pelvis no acute inflammatory process. Fatty liver, enlarged Liver, 1.8cm ovarian cyst/follicle. She reported gradual onset of symptoms over last 3 days, intermittent symptoms,moderate severity,suprapubic pain, aching. Nausea, intermittent chest pain,non radiating. +Nausea. No fever. Ddx in ED was appendicitis, bowel obs, constipation, Gastroenteritis, hepatitis, pancreatitis, ibs, pneumonia, renal colic, stone, uti, ovarian cyst. ROS reviewed abdominal pain, nausea, poor appetite, poor fluid intake. Histor of DM2, apparently poorly regulated. LMP. +COBB. Exam from ER normal Resp, normal CV, tenderness in abd with hypoactive sounds. Will await culture, will treat with IV rocephin to cover for UTI. Will also check 2 more sets of enzymes, get stress test in am tomorrow. With knee pain we will use a chemical stress. Await urine culture. Patient and fiance present in room 118. MS Kale guadalupe present with me entirety of encounter. Patient complained of N/V/D, suprapubic pain and "migraine" left advent, left occipital, left neck with trapezius tenderness on Left. She has no obvious chest pain, no anginal chest pain. NOtes some epigastric pain at times. Complicated by morbid obesity. She has no CP now, no dizziness now but has had this over the last few days. Vague symptoms to include N/V/D, upset stomach, suprapubic pain, frequency, hesitancy, burning, no vaginal discharge. Sx x 4 days, migrainous COBB which is more likely tension COBB x 2 days. 48 hours decreased PO intake. She is not checking sugars. Moved locally 07/[address] [facility]. History of lung cancer ~11-12 years ago, unknown etiology per patient, no further f/u per patient. COBB 8/10 no photophobia, no phonophobia. + Nausea. She has had ?Gastroenteritis over the last few days. Mild dehydration is possible. NO imaging of head in last few years. She has not eaten or been out of bed in 48 hours. She tried to get to work today, got sick at work and had to leave, went to ED due to dizzy/COBB. Glucose was >300 in ED. Rocephin 1 gram while in hospital. Fluids at 120ml/hour based on her maintenance. We talked about d/c with bactrim. Would like cath specimen for culture prior to abx. CT head, echo/stress echo ordered. Morphine for pain relief and lovenox for DVT prophy. 01/25/19 HD 2: Labs this am showed normal CBC w/ WBC 9.11, hgb 12.4, plt 223. NL CMP with sodium 137.2, K+ 3.59, BUN 8.09, CR 0.70, glucose 183.7. She had troponin evaluation x 3 and negative. Temp remained afebrile overnight 97.9- 98.2. BP 119-137/71-96, 94-96% on RA, telemetry normal sinus rhythm. Yesterday PM she had negative echo, negative dobutamine stress echo. Good urine output. Accuchcecks 206, 206, 198, 190, 184. She c/o feeling febrile all night. Nursing checked temp regularly and never febrile. This am COBB is resolved, no N/ V/D during hospital stay, suprapubic pressure is better/resolving. With he symptoms essentially resolved, we will discharge her home today. She has reached point of maximal improvement with this hospitalization. Today we will d /c with bactrim DS BID x 5 days, steglatro R/B/A d/w patient this am, metformin 1000 titrate to BID R/B/A to this d/w patient. REcommended accucheck daily fasting and when feeling poorly. We will f/u with patient for her regularly scheduled appt on 02/02/19. COBB resolved, abdominal pain resolved, no diarrhea in hospital, no fever in hospital, no chest pain in hospital. R/O ACS. She was essentially symptom free this am. Vital Signs - 24 hr 01/24/19 01/24/19 01/24/19 09:38 14:00 21:39 Temperature 97.7 F 98.0 F 97.9 F Pulse Rate 82 70 70 Pulse Rate [ 80 Apical] Respiratory 18 16 18 Rate Blood Pressure 119/71 137/92 H O2 Sat by Pulse 100 94 L 94 L Oximetry 01/25/19 01/25/19 05:12 07:00 Temperature 97.9 F Pulse Rate 80 Pulse Rate [ Apical] Respiratory 18 Rate Blood Pressure 123/77 123/77 O2 Sat by Pulse 96 Oximetry Constitutional: Appearance-Resting comfortably, no c/o this am. NO COBB ( resolved), no abd pain, no N/V/D. [place] well rested. Orientation- Oriented x 3, alertGait-Normal pace, normal arm movement. Build and Nutrition-[morbidly obese BMI 48.5.] General- Patient is pleasant and cooperative with the interview and exam. Integumentary: General-No rashes, ulcers or lesions. Palpation- Normal skin moisture/turgor. Skin is warm to touch, appropriate. Capillary refill is normal bilateral Upper and lower extremity. Eye: Bilaterally PERRLA, EOMI. No discharge. Upper and lower eyelids are normal. Sclera/conjunctiva normal without discharge. Cornea is normal and clear. Lens is normal. Eyeball appears normal. No ciliary flushing, no conjunctival injection. ENMT: Nares- bilateral quiet airflow, no discharge. Nasal mucosa- No bleeding noted and no ulcerations observed. [place], moist. Turbinates non boggy. Lips- normal color, moist without cracks/lesions Oral Cavity/Palate- hard/soft palate intact without lesions, oral mucosa pink and moist. Oropharynx- no pharyngeal erythema, Uvula midline. No post nasal drip. No exudate. Salivary glands- Non tender to palpation CHEST/LUNG: Inspection- symmetric chest wall no pectus deformity. Normal effort , no distress, no use of accessory muscles. Palpation- nontender sternum,tender along second intercostal space through fourth intercostal space anterior clavicular line. No abnormal pulsations. Auscultation- Breath sounds normal throughout all lung phelan. Normal tracheal sounds, Normal bronchial sounds overlying sternum, Bronchovessicular sounds normal between scapulae posteriorly , Normal vessicular breath sounds heard throughout periphery. Lungs are clear today. Adventitious sounds- No wheezes, rales, rhonchi. CARDIOVASCULAR: Carotid artery- normal, no bruits or abnormal pulsations. Jugular vein- no pulsations. Palpation/Percussion- Normal PMI, no palpable thrill Auscultation- Regular rate and rhythm. No murmur noted in sitting, supine positions. Extremities- no digital clubbing, cyanosis, edema, increased warmth. ABDOMEN: Inspection- normal and no visible pulsations. Normal contour. Auscultation- Bowel sounds normal, no abdominal bruits. Palpation/Percussion- soft,non tender no rebound tenderness, no rigidity (guarding), no jar tenderness , no masses. Peripheral Vascular: Lower extremity- Normal temperature with pink nailbeds and no ulcerations. DP pulses 2+ bilaterally. Pedal hair intact. Normal capillary refill. Edema- No edema. Musculoskeletal: Generalized-No generalized swelling or edema of extremities, no digital clubbing or cyanosis, neurovascularly intact all four extremities. Neurological: General- Moves all 4 extremities symmetrically. Symmetrical face and body posture. Cranial nerves- individually evaluated II-XII and intact. PERRLA, Normal EOMI, visual/special senses appear intact, Face is symmetrical and normal sensation/movement, normal tongue, normal strength/posture of neck musculature. Neuropsych: Oriented- Person, place, time. (AAOx3), Mood/affect- normal and congruent. Able to articulate well. Speech-Normal speech, normal rate, normal tone, normal use of language, volume and coherence. Thought content- normal Associations- intact, no SI/HI, no hallucinations, delusions, obsessions. Judgment/insight- Appropriate. Memory-Recall intact, remote and recent memory intact. Knowledge- Age appropriate fund of knowledge, concentration and attention span normal. Lymphatic: Head/Neck- normal size and non tender to palpation. Axillary- normal size and non tender to palpation. Femoral and Inguinal- normal size and non tender to palpation. Plan: Plan: 1. Discharge Home 2. Diet 1800 Calories per day recommended, recommend meeting with system dispatcher 3. Activity as tolerated 4. Keep scheduled appt with Dr. Peguero 02/02/19. Diabetes: 1. Check glucose fasting daily (minimum of 3-5x weekly) - Document sugars within a spiral notebook and bring to clinic. - Check sugars when you get up for the day after fasting and before your meal - If you are feeling weak, sweaty, dizzy, check your sugar to see if it is low or high and document that in the book. 2. We will resume meloxicam for knee pain and generalized body pain 3. Goal hemoglobin a1c needs to be 6-7%. 4. New Medications: I will start medication called Steglatro. This is a once a day pill. Please take this daily. Side effects, risks/benefits to this medication were discussed this am with the patient. I will start medication metformin and titrate to 1000 mg twice daily. Antibiotics: 1. I will discharge you with antibiotic bactrim DS. Take 1 twice daily until gone. 2. Await final urine culture. >30 minutes spent on discharge today. If symptoms worsen, if new symptoms return, can return to ED or call Dr. Peguero office to try to get appt.
== END 2019-01-25 08:58 | disposition home or self-care (01) ==
LOC: ED 06:43 → MEDSURG B 09:18 → INTOOBSV 09:18 → UNDOADMOB 09:18 → MEDSURG B 09:18 → UNDODISOB 01-25 08:58
PROVIDERS: ADMIT Family Medicine; ATTEND Family Medicine
DX: R07.9 Chest pain, unspecified (principal); Z68.42 Body mass index [BMI] 45.0-49.9, adult; R10.9 Unspecified abdominal pain; K76.0 Fatty (change of) liver, not elsewhere classified; R10.30 Lower abdominal pain, unspecified; E11.65 Type 2 diabetes mellitus with hyperglycemia; R19.7 Diarrhea, unspecified; E86.0 Dehydration
CPT/HCPCS: 36415; 80053; 81001; 82150; 82550; 82962; 83036; 83605; 83690; 84145; 84484; 84703; 85025; 87086; 93005; 93010; 96361; 96374; 97802; 99284

== ENCOUNTER 2019-02-02 10:55 | Outpatient (CLI) | END 2019-02-02 10:56 | disposition home or self-care (01) | LOC: RHC-LAB 10:55 → FCC-LAB 10:56 | PROVIDERS: ATTEND Family Medicine | DX: E11.9 Type 2 diabetes mellitus without complications (principal) | CPT/HCPCS: 82043 ==

== ENCOUNTER 2022-10-24 01:25 | Observation (INO) ==
[2022-10-24] MEDS ORDERED: SODIUM CHLORIDE 1,000 ML IV STA ×3 (01:42→04:49)
[2022-10-24] MEDS ORDERED: ROCEPHIN 1 GM/50 ML D5W 1 GM/50 ML BAG IV ONE (01:42)
--- NOTE | 2022-10-24 01:42 | ED.PDOC ---
General ED Provider: Dr. VASILIY ARDON MD Chief Complaint: Chest Pain Stated Complaint: PATIENT WITH A HISTORY OF TYPE 2 DIABETES, HYPERTENSION AND PULMONARY CARCINOMA WITHOUT TREATMENT COMPLAINS OF SORETHROAT, FEVER AND CHILLS SINCE YESTERDAY AND ONSET OF PRODUCTIVE COUGH YELLOW SPUTUM SINCE LAST NIGHT ASSOCIATED WITH SHARP CHEST PAINS. Time Seen by Provider: 10/24/22 01:40 Information Source: Patient Exam Limitations: Clinical condition Primary Care Provider: CHARLEEN NEWMAN MD Nursing and Triage Documentation Reviewed and Agree: Yes Does patient meet sepsis criteria?: Yes If yes, has appropriate treatment been initiated?: Yes System Inflammatory Response Syndrome: Temp 101F or Greater (TEMP 101.1) and Pulse >90 BPM Sepsis Protocol: For patient's 13 years and over: Temp is 96.8 and below OR 101 and greater Pulse >90 BPM Resp >20/minute Acutely Altered Mental Status Are patient's symptoms suggestive of a new infection, such as: -Pneumonia -Skin, Soft Tissue -Endocarditis -UTI -Bone, Joint Infection -Implantable Device -Acute Abdominal Infection -Wound Infection -Meningitis -Blood Stream Catheter Infection -Unknown Cardiovascular Complaint Exam Chest Pain Complaint/Exam Onset: Sudden Duration: ONSET OF SHARP CHEST PAINS ASSOCIATED WITH FEVER, CHILLS, PRODUCTIVE COUGH Symptoms Are: Still present Timing: Intermittent Initial Severity: Moderate Current Severity: Moderate Location: Reports Midsternal Pain Radiates: Reports None Character: Reports Sharp Aggravating: Reports None Alleviating: Reports None Associated Signs and Symptoms: Reports Nausea and Cough; Denies Calf pain or Calf swelling Related Surgical History: Reports None History of Healthcare-Acquired Pneumonia: Reports No AMI/ACS Risk Factors: Reports Diabetes, Obesity and Hypertension TAD Risk Factors: Reports Hypertension Pulmonary Embolism Risk Factors: Reports Malignancy Prior Care for this Complaint: No Recent Stress Test: No Recent Echo/LV Function: No JVD Present: No Subcutaneous Emphysema Present: No Diminshed Breath Sounds: No Reproducible Chest Wall Pain: Yes Bilateral Pulses Present: Yes Unequal Pulses Noted: No If Risk Factors for AMI/ACS Consider: EKG, Cardiac Enzymes and Serial Studies If Risk Factors for PE Consider: Chest CT with contrast Differential Diagnoses: Stable Angina, Unstable Angina, Chest Wall Pain and Pulmonary Embolism Review of Systems Review Of Systems Constitutional: Reports Chills and Fever Eyes: Reports No symptoms; Denies Blindness, Blurred vision or Photophobia Ears, Nose, Mouth, Throat: Reports Mouth pain and Throat pain; Denies Throat swelling Respiratory: Reports Cough and Short of air Cardiac: Reports Chest pain and Palpitations; Denies Syncope GI: Reports No symptoms; Denies Abdomen distended or Abdominal pain : Reports No symptoms; Denies Burning, Dysuria or Discharge Musculoskeletal: Reports No symptoms and Back pain (CHRONIC LOW BACK PAIN) Skin: Reports No symptoms Neurological: Reports No symptoms Endocrine: Reports No symptoms; Denies Excessive sweating Hematologic/Lymphatic: Reports No symptoms and Anemia All Other Systems: Reviewed and Negative [facility] Medical History Family History Mother Diabetes Cardiac disease Allergies Hyperthyroidism Hypertension Breast cancer FATHER Cardiac disease Hypertension BROTHER Diabetes mgm GI problem Diabetes Cardiac disease Blood disease Cancer Hypertension pgm Diabetes Cancer pgf Diabetes Social History Smoking and tobacco status: Never smoker Second hand smoke exposure: Yes Alcohol intake: never Substance use type: does not use Phyllis/jew: [employer] Special phyllis needs: No Agree to transfusion: Yes Adopted: No Caregiver/support person: No Foster care: No Household members: significant other and children Housing: house Lives independently: Yes Daycare: no daycare Number of children: 4 Number of grandchildren: 2 Highest education level completed: some college, no degree Financial difficulty paying for basics: not very hard service: No residential: Yes Current occupational status: employed Current occupation: [employer] Leisure activites: exercise and music History of recent travel: No Sexually active: Yes Do you think of yourself as: straight/heterosexual Current gender identity: female Seatbelt use: always Helmet use: No Drives intoxicated or rides with intoxicated lifter/driver: No Water heater temperature set < 120 degrees: Yes Working smoke detector in home: Yes Fire extinguisher in home: Yes Carbon monoxide detector in home: Yes Firearms in home: No Surgical History Female Reproductive History Menstrual Hx Hysterectomy: No Hx Tubal Ligation: No Physical Exam Physical Exam Appearance: Reports Ill-appearing Ill-appearing: Mild Pain Distress: Mild Eyes: Reports LIN and EOMI; Denies Conjunctiva inflammed ENT: Reports Ears normal, Nose normal and Oropharynx normal; Denies TMs Occluded Neck: Supple Respiratory: Reports Airway patent, Breath sounds clear and Breath sounds equal; Denies Breath sounds diminished or Respirations nonlabored Cardiovascular: Reports RRR, Pulses normal, No rub and No murmur GI/: Reports Soft, Nontender, No masses, Bowel sounds normal and No Organomegaly; Denies Tender, Mass, Hepatomegaly or Splenomegaly Musculoskeletal: Reports Normal strength, ROM intact, No edema and No calf tenderness; Denies Limited ROM Skin: Reports Dry and Normal color; Denies Pale or Diaphoretic Neurological: Reports Sensation intact, Motor intact and Reflexes intact Psychiatric: Reports Mood appropriate Interpretation College Intern Time of College Intern Interpretation: 01:45 Rate: Normal Rhythm: Sinus EKG Interpretation Time of EKG #1: 01:53 Rate: Tachy Rhythm: Sinus Ectopy: None ST Segment: Other (NONSPECIFIC ST WAVE CHANGES INFERIOREL) EKG Interpretation By: ED Physician Time of EKG #2: 05:03 Rate: Normal Rhythm: Sinus Ectopy: None [place]: [place] EKG Interpretation: INTERPRETED BY MYSELF NO CHANGE NSR RATE [address] WAVE Re-Evaluation Re-Evaluation Time of Re-Evaluation: 03:00 Status: Improved Vital Signs Stable: Yes Pain Level: RESOLVED, TEMP 97 DEGREES, PULSE IMPROVED TO PULSE 98 Appearance: NAD Lungs: Clear Skin: Warm and Dry Neuro: Alert and Oriented X3 CV: RRR Physician Notification Case Discussed Physician Notified: DISCUSSED WITH HOSPITALIST CONCHIS Time of Notification: 05:35 Comments: DISCUSSED PATIENT HISTORY, PRESENT ILLNESS, HOSPITAL COURSE AND REPEAT LAB DATA, FOR ADMIT TO OBSERVATION Critical Care Note Critical Care Note Total Critical Care Time (mins): 30 Course Course 10/24/22 05:00 10/24/22 05:00 Orders, Labs, Meds: Lab Review 10/24/22 10/24/22 10/24/22 01:40 02:00 05:00 WBC 18.10 H 15.57 H RBC 4.52 4.33 Hgb 13.8 13.3 Hct 39.7 38.7 MCV 87.8 89.4 MCH 30.5 30.7 MCHC 34.8 34.4 RDW Coeff of Neha 12.3 12.4 Plt Count 205 189 Immature Gran % (Auto) 0.4 0.3 Neut % (Auto) 84.1 H 84.8 H Lymph % (Auto) 8.3 L 8.0 L [place] % (Auto) 6.6 6.4 Eos % (Auto) 0.4 0.3 Baso % (Auto) 0.2 0.2 Neut # (Auto) 15.2 H 13.2 H Lymph # (Auto) 1.5 1.3 [place] # (Auto) 1.2 1.0 Eos # (Auto) 0.1 0.1 Baso # (Auto) 0.0 0.0 Immature Gran # (Auto) 0.1 0.1 PT 9.3 INR 0.88 APTT 25.2 Sodium 130.8 L 132.3 L Potassium 3.78 3.79 Chloride 99.7 103.4 Carbon Dioxide 23.2 23.9 Anion Gap 11.68 8.79 BUN 12.8 11.3 Creatinine 0.58 L 0.53 L Estimated GFR (MDRD) 113.00 126.00 BUN/Creatinine Ratio 22.06 21.32 Glucose 381.7 H 331.0 H D Lactic Acid 2.49 H 1.07 D Calcium 9.13 8.29 L Magnesium 1.53 L Total Bilirubin 0.52 AST 23.0 ALT 23.1 Alkaline Phosphatase 129.6 H Troponin I < 0.012 < 0.012 Total Protein 6.99 Albumin 3.94 Globulin 3.05 Albumin/Globulin Ratio 1.29 D-Dimer 312.63 Urine Color Yellow Urine Clarity Clear Urine pH 5.5 Ur Specific [place] 1.010 Urine Protein Negative Urine Glucose (UA) 3+ H Urine Ketones Negative Urine Blood 1+ H Urine Nitrite Negative Urine Bilirubin Negative Urine Urobilinogen 0.2 Ur Leukocyte Esterase Negative Urine Microscopic RBC 10-20 Ur Squamous Epith Cells 5-10 Urine Bacteria 1+ Urine Test Negative Acetone, Qual None Influ A Molecular Assay Negative by naat Influ B Molecular Assay Negative by naat SARS CoV-2 RNA Rapid MARIANO Negative Orders Category Date Time Status EKG-(ED ONLY) Stat CARDIO 10/24/22 01:42 Completed EKG-(ED ONLY) Stat CARDIO 10/24/22 04:45 Completed NPO REMINDER: IMAGING ONCE CARE 10/24/22 03:25 Completed TELEMETRY MONITORING TELE CARE 10/24/22 01:42 Active IV [ED IV/MEDIPORT/POWERPORT] .ONCE EMERGENCY 10/24/22 01:42 Active ACETONE, QUALITATIVE Stat LAB 10/24/22 01:40 Completed BLOOD CULTURE (ED ONLY) Stat LAB 10/24/22 02:20 Received BMP [BASIC METABOLIC PANEL] Stat LAB 10/24/22 05:00 Completed CBC W/ AUTO DIFF Stat LAB 10/24/22 02:00 Completed CBC W/ AUTO DIFF Stat LAB 10/24/22 05:00 Completed CMP [COMPREHENSIVE METABOLIC PANEL] Stat LAB 10/24/22 02:00 Completed D-DIMER Stat LAB 10/24/22 02:00 Completed LACTIC ACID Stat LAB 10/24/22 02:00 Completed LACTIC ACID Stat LAB 10/24/22 05:00 Completed MAGNESIUM Stat LAB 10/24/22 02:00 Completed MOLECULAR FLU A & B [FLU A/B MOLECULAR] Stat LAB 10/24/22 01:40 Completed MOLECULAR GROUP A STREP Stat LAB 10/24/22 01:40 Completed TEST URINE [URINE ] Stat LAB 10/24/22 01:40 Completed PT WITH INR Stat LAB 10/24/22 02:00 Completed PTT [PARTIAL THROMBOPLASTIN TIME] Stat LAB 10/24/22 02:00 Completed SARS COV-2 RNA RAPID MARIANO Stat LAB 10/24/22 01:40 Completed TROPONIN I Stat LAB 10/24/22 02:00 Completed TROPONIN I Stat LAB 10/24/22 05:00 Completed URINALYSIS C & S IF INDICATED Stat LAB 10/24/22 01:40 Completed URINE CULTURE Stat LAB 10/24/22 01:40 Received 0.9 % Sodium Chloride [Saline Flush] MEDS 10/24/22 01:42 Active 1 syr IVF PRN PRN Acetaminophen [Tylenol] MEDS 10/24/22 01:46 Discontinued 650 mg PO ONCE STA Aspirin [Aspirin Chewable] MEDS 10/24/22 01:47 Discontinued 324 mg PO ONCE STA Azithromycin Inj [Zithromax] 500 mg MEDS 10/24/22 04:50 Active 0.9 % Sodium Chloride [Sodium Chloride] 250 ml IV ONCE Ceftriaxone/D5w 1 gm Premix [Rocephin 1 gm/50 ml D5w] MEDS 10/24/22 01:42 Discontinued 1 gm in 50 ml IV ONCE Ketorolac Tromethamine [Toradol] MEDS 10/24/22 02:13 Discontinued 30 mg IVP ONCE ONE Ondansetron HCl/Pf [Zofran 4 mg/2 ml] MEDS 10/24/22 01:56 Discontinued 4 mg IVP ONCE STA Ondansetron HCl/Pf [Zofran 4 mg/2 ml] MEDS 10/24/22 02:13 Discontinued 4 mg IVP ONCE STA Sodium Chloride 0.9% [Sodium Chloride] 1,000 ml MEDS 10/24/22 04:49 Active IV 100 mls/hr Sodium Chloride 0.9% [Sodium Chloride] 1,000 ml MEDS 10/24/22 01:42 Discontinued IV BOLUS Sodium Chloride 0.9% [Sodium Chloride] 1,000 ml MEDS 10/24/22 02:46 Discontinued IV BOLUS CHEST, 1V AP ONLY Stat RADS 10/24/22 01:[address] CHEST W/CONTRAST Stat RADS 10/24/22 03:25 Completed Medications Generic Name Dose Route Start Last Admin Trade Name Freq PRN Reason Stop Dose Admin Sodium Chloride 1,000 mls @ 100 mls/hr 10/24/22 04:49 10/24/22 05:00 Sodium Chloride IV 10/24/22 14:48 100 mls/hr .Q10H STA Administration Azithromycin 500 mg/ Sodium 250 mls @ 125 mls/hr 10/24/22 04:50 10/24/22 05:00 Chloride IV 10/24/22 06:49 125 mls/hr ONCE STA Administration Sodium Chloride 1 syr 10/24/22 01:42 0.9% Sodium Chloride 10 Ml Disp.Syrin IVF PRN PRN To flush IV Discontinued Medications Generic Name Dose Route Start Last Admin Trade Name Freq PRN Reason Stop Dose Admin Acetaminophen 650 mg 10/24/22 01:46 10/24/22 02:08 Acetaminophen 325 Mg Tablet PO 10/24/22 01:47 650 mg ONCE STA Administration Aspirin 324 mg 10/24/22 01:47 10/24/22 02:07 Aspirin 81 Mg Tab.Chew PO 10/24/22 01:48 324 mg ONCE STA Administration Sodium Chloride 1,000 mls @ 1,000 mls/hr 10/24/22 01:42 10/24/22 02:11 Sodium Chloride IV 10/24/22 02:41 1,000 mls/hr BOLUS STA Administration CEFTRIAXONE/D5W 1 GM PREMIX 1 gm in 50 mls @ 75 mls/hr 10/24/22 01:42 10/24/22 02:11 Rocephin 1 Gm/50 Ml D5w IV 10/24/22 02:21 75 mls/hr ONCE ONE Administration Sodium Chloride 1,000 mls @ 1,000 mls/hr 10/24/22 02:46 10/24/22 03:52 Sodium Chloride IV 10/24/22 03:45 1,000 mls/hr BOLUS STA Administration Ketorolac Tromethamine 30 mg 10/24/22 02:13 Ketorolac Tromethamine 30 Mg/Ml Vial IVP 10/24/22 02:14 ONCE ONE Ondansetron HCl 4 mg 10/24/22 01:56 10/24/22 02:10 Ondansetron Hcl/Pf 4 Mg/2 Ml Sdv IVP 10/24/22 01:57 4 mg ONCE STA Administration Ondansetron HCl 4 mg 10/24/22 02:13 Ondansetron Hcl/Pf 4 Mg/2 Ml Sdv IVP 10/24/22 02:14 ONCE STA Vital Signs: Temp Pulse Resp BP Pulse Ox 10/24/22 04:35 97.3 F L 96 14 143/81 H 96 10/24/22 03:09 103 H 21 H 144/86 H 95 10/24/22 01:29 100.0 F 129 H 18 150/100 H 95 EUGENE Risk Score Age >/= 65: No >/= 3 CAD Risk Factors: Yes Known CAD (Stenosis >/= 50%): No ASA Use in Past 7 Days: No Severe Angina (>/= 2 episodes in 24 hours): No EKG ST Changes >/= 0.5mm: Yes Postive Cardiac Marker: No EUGENE Total Score: 2 EUGENE Risk Score: Risk Score Odds of by 30D 0 0.1 (0.1-0.2) 1 0.3 (0.2-0.3) 2 0.4 (0.3-0.5) 3 0.7 (0.6-0.9) 4 1.2 (1.0-1.5) 5 2.2 (1.9-2.6) 6 3.0 (2.5-3.6) 7 4.8 (3.8-6.1) Discharge Plan Discharge Patient Disposition: PLACED OBSERVATION Discharge Problem: Leukocytosis, Acute bronchitis Did you review [place] for ALL controlled substances?: Not Applicable ED Provider: VASILIY ARDON Condition: Stable Physician Progress Note: MDM HISTORY OBTAINED PER PATIENT AND FAMILY MEMBER [] PATIENT WITH A HISTORY OF TYPE 2 DIABETES, HYPERTENSION AND PULMONARY CARCINOMA WITHOUT TREATMENT COMPLAINS OF SORETHROAT, FEVER AND CHILLS SINCE YESTERDAY AND ONSET OF PRODUCTIVE COUGH YELLOW SPUTUM SINCE LAST NIGHT ASSOCIATED WITH SHARP CHEST PAINS. EKG SINUS TACHYCARDIA RATE 111, NORMAL AXIS, NONSPECIFIC ST WAVE CHANGES INFERIORLY EUGENE SCORE-2 PATIENT PLACED ON SEPSIS PROTOCOL 30ML/KG NS BOLUS 1 LITER/HR X 2, ASPIRIN 324MG, TYLENOL 650MG ORALLY AFTER 2 SETS OF BLOOD CULTURES IV ROCEPHIN 1GM IVPB 0300 TEMP 97 DEGREES, PULSE 98 AFTER 1 LITER BOLUS ALL LAB TEST INTERPRETED BY MYSELF, COVID, INFLU A/B STREP, TROPONIN ARE NEGATIVE LACTIC ACID 2.49. WBC 18,000 CHEST XRAY NEGATIVE 0500 REPEAT CBC, WITH WBC 15,500, LACTIC ACID-1.07, BMP-GLUCOSE 331 0503 REPEAT EKG NSR RATE [address] WAVE CHANGES INFERIORLY, NORMAL AXIS 0530- PATIENT REMOVED OFF THE SEPSIS PROTOCOL 05 DISCUSSED WITH HOSPITALIST CONCHIS FOR ADMIT TO OBS DIFF DIAGNOSIS: 1)ACUTE BROCHITIS WITH LEUKCYTOSIS 2)PNEUMONIA WITH SEPSIS 3)PULMONARY EMBOLISM 4)INFLUENZA A/B 5)COVID BRONCHITIS CT CHEST WITH IV CONTRAST C/W NORMAL STUDY
[2022-10-24] MEDS ORDERED: TYLENOL PO STA (01:46)
[2022-10-24] MEDS ORDERED: ASPIRIN CHEWABLE PO STA (01:47)
[2022-10-24] MEDS ORDERED: ZOFRAN 4 MG/2 ML IVP STA ×2 (01:56→02:13)
[2022-10-24 02:12] LABS: BASOPHILS % (AUTO) 0.2 % (0.0-3.0); EOSINOPHILS # (AUTO) 0.1 K/ul (0.0-0.7); EOSINOPHILS % (AUTO) 0.4 % (0.0-7.0); HEMATOCRIT 39.7 % (37.0-47.0); HEMOGLOBIN 13.8 g/dl (12.0-16.0); IMMATURE GRANULOCYTE # (AUTO) 0.1 (0.0-1.0); IMMATURE GRANULOCYTE % (AUTO) 0.4 % (0.0-5.0); LYMPHOCYTES # (AUTO) 1.5 K/uL (0.60-3.4); LYMPHOCYTES % (AUTO) 8.3 (10.0-50.0); MEAN CORPUSCULAR HEMOGLOBIN 30.5 pg (27.0-31.0); MEAN CORPUSCULAR HGB CONC 34.8 (31.8-35.4); MEAN CORPUSCULAR VOLUME 87.8 fl (81.0-99.0); MONOCYTES # (AUTO) 1.2 K/uL (0.4-2.0); MONOCYTES % (AUTO) 6.6 (0-10); NEUTROPHILS # (AUTO) 15.2 K/ul (2.0-6.9); NEUTROPHILS % (AUTO) 84.1 % (42.2-75.2); PLATELET COUNT 205 10^3/uL (140-440); RDW COEFFICIENT OF VARIATION 12.3 % (11.6-14.8); RED BLOOD COUNT 4.52 10^6/ul (4.20-5.40)
[2022-10-24] MEDS ORDERED: TORADOL IVP ONE (02:13)
[2022-10-24 02:21] LABS: URINE PREGNANCY TEST NEGATIVE (NEGATIVE)
[2022-10-24 02:28] LABS: ALANINE AMINOTRANSFERASE 23.1 U/L (0-35); ALBUMIN 3.94 g/dL (3.5-5.0); ALKALINE PHOSPHATASE 129.6 U/L (38-126); BILIRUBIN,TOTAL 0.52 mg/dL (0.2-1.3); BLOOD UREA NITROGEN 12.8 mg/dL (7-17); CALCIUM 9.13 mg/dL (8.4-10.2); CARBON DIOXIDE 23.2 mmol/L (22-30.0); CHLORIDE 99.7 mmol/L (98-107); CREATININE 0.58 mg/dL (0.60-1.30); GLUCOSE 381.7 mg/dL (74-106); POTASSIUM 3.78 mmol/L (3.5-5.1); SODIUM 130.8 mmol/L (134.5-145); TOTAL PROTEIN 6.99 g/dL (6.3-8.2)
[2022-10-24 02:32] LABS: BILIRUBIN,URINE Negative (NEGATIVE); CLARITY,URINE Clear (CLEAR); COLOR,URINE Yellow (YELLOW); KETONES,URINE Negative (NEGATIVE); LEUKOCYTE ESTERASE ,URINE Negative (NEGATIVE); NITRITE,URINE Negative (NEGATIVE); PH,URINE 5.5 (5-9); PROTEIN,URINE Negative (NEGATIVE); URINE, BLOOD 1+ (NEGATIVE); UROBILINOGEN,URINE 0.2 (0.2)
[2022-10-24 02:35] LABS: PARTIAL THROMBOPLASTIN TIME 25.2 SEC (23.9-40.0); PROTHROMBIN TIME 9.3 SEC (9.3-11.0)
[2022-10-24 02:35] LABS: GLUCOSE, URINE (UA) 3+ (NEGATIVE)
[2022-10-24 02:36] LABS: BACTERIA,URINE 1+ (NOT PRESENT)
--- NOTE | 2022-10-24 02:36 | DI ---
EXAM: PORTABLE CHEST HISTORY: Cough COMPARISON: Two-view chest 10/20/2021 FINDINGS: The cardiomediastinal silhouette is stable. The lungs are clear bilaterally. There are n o acute osseous abnormalities. IMPRESSION: No evidence of active pulmonary disease or interval change
[2022-10-24 02:40] LABS: TROPONIN I < 0.012 ng/ml (0.0000-0.120)
[2022-10-24 02:41] LABS: MOLECULAR FLU A NEGATIVE BY NAAT (NEGATIVE); MOLECULAR FLU B NEGATIVE BY NAAT (NEGATIVE)
[2022-10-24 03:04] LABS: SARS COV-2 RNA RAPID NAAT NEGATIVE (NEGATIVE)
--- NOTE | 2022-10-24 04:07 | CT ---
EXAM: CT CHEST WITH CONTRAST History: Chest pain Technique: [address] of the chest following intravenous contrast FINDINGS: Lung windows show no pulmonary parenchymal abnormality. Normal heart, great vessels and p ericardium. No chest wall abnormality. No chest wall abnormality. No abnormalities of the upper ab domen. Impression: 1. No acute findings of the chest All CT scans are performed using dose optimization techniques as appropriate to the performed exam an d include at least one of the following: Automated exposure control, adjustment of the mA and/or kV according t o size, and the use of iterative reconstruction technique.
[2022-10-24] MEDS ORDERED: ZITHROMAX 500 MG in SODIUM CHLORIDE 250 ML IV STA (04:50)
[2022-10-24 05:08] LABS: BASOPHILS % (AUTO) 0.2 % (0.0-3.0); EOSINOPHILS # (AUTO) 0.1 K/ul (0.0-0.7); EOSINOPHILS % (AUTO) 0.3 % (0.0-7.0); HEMATOCRIT 38.7 % (37.0-47.0); HEMOGLOBIN 13.3 g/dl (12.0-16.0); IMMATURE GRANULOCYTE # (AUTO) 0.1 (0.0-1.0); IMMATURE GRANULOCYTE % (AUTO) 0.3 % (0.0-5.0); LYMPHOCYTES # (AUTO) 1.3 K/uL (0.60-3.4); MEAN CORPUSCULAR HEMOGLOBIN 30.7 pg (27.0-31.0); MEAN CORPUSCULAR HGB CONC 34.4 (31.8-35.4); MEAN CORPUSCULAR VOLUME 89.4 fl (81.0-99.0); MONOCYTES % (AUTO) 6.4 (0-10); NEUTROPHILS # (AUTO) 13.2 K/ul (2.0-6.9); NEUTROPHILS % (AUTO) 84.8 % (42.2-75.2); PLATELET COUNT 189 10^3/uL (140-440); RDW COEFFICIENT OF VARIATION 12.4 % (11.6-14.8); RED BLOOD COUNT 4.33 10^6/ul (4.20-5.40); WHITE BLOOD COUNT 15.57 K/ul (4.6-10.2)
[2022-10-24 05:23] LABS: BLOOD UREA NITROGEN 11.3 mg/dL (7-17); CALCIUM 8.29 mg/dL (8.4-10.2); CARBON DIOXIDE 23.9 mmol/L (22-30.0); CHLORIDE 103.4 mmol/L (98-107); CREATININE 0.53 mg/dL (0.60-1.30); POTASSIUM 3.79 mmol/L (3.5-5.1); SODIUM 132.3 mmol/L (134.5-145)
[2022-10-24 05:40] LABS: TROPONIN I < 0.012 ng/ml (0.0000-0.120)
[2022-10-24 06:40] VITALS: BMI 45.0
[2022-10-24] MEDS ORDERED: MAGNESIUM SULFATE 1 GM/2 ML VIAL IVP ONE (08:56)
[2022-10-24] MEDS ORDERED: ZOFRAN 4 MG/2 ML IVP PRN (08:56)
[2022-10-24] MEDS ORDERED: VENTOLIN HFA (PER PUFF-WITH SPACER) IH PRN (08:58)
[2022-10-24] MEDS ORDERED: TIZANIDINE 4 MG PO PRN (08:58)
[2022-10-24] MEDS ORDERED: ZANAFLEX PO PRN (09:08)
[2022-10-24] MEDS ORDERED: MAGNESIUM SULF 2 G/50 ML BAG 2 GM/50 ML PIGGYBACK IV ONE (09:30)
[2022-10-24] MEDS: NEURONTIN PO SCH ×3 (09:39→20:07)
[2022-10-24] MEDS: ZESTRIL PO SCH (09:39)
[2022-10-24] MEDS: ELAVIL PO SCH (09:39)
[2022-10-24] MEDS: LOVENOX SUBCUT SCH (09:40)
[2022-10-24] MEDS: LANTUS SUBCUT SCH (09:40)
[2022-10-24] MEDS: TYLENOL PO PRN (11:14)
[2022-10-24] MEDS ORDERED: SOLU-MEDROL 40 MG IVP ONE (11:24)
--- NOTE | 2022-10-24 11:30 | PCM ---
Date of Service Date Seen by Provider: 10/24/22 Time Seen by Provider: 09:15 Admit Day/Time Admission Date: 10/24/22 Admission Time: 05:45 Reason for Admission Chief Complaint: ACUTE BRONCHITIS WITH LEUKOCYTOSIS Hospital Provider Hospital Provider: CONCHIS ELLIS PA-C, [facility] [place] Phys[place] Primary Care Physician: CHARLEEN NEWMAN MD History of Present Illness History of Present Illness: Patient is a 42 year old female with pmhx of hypertension, DMT2 insulin dependent, migraines, and history of lung cancer/abnormality who presents to ER for sore throat, cough and chest pain since yesterday. Patient overall doesn't feel well. Reports a fever yesterday. Denies sob. States she had n/v yesterday as well. Denies abd pain. Has diarrhea, but states that is chronic. In the ER she had an elevated wbc, tachycardic, and elevated LA. This improved with fluids and abx. Lactic normalized. However, WBC still 15.5. Covid, flu, and strep negative. CXR and CT chest negative. Mag low at 1.5. She received fluids, rocephin, and azithromycin. Admitted to obs on medsurg. Patient states she was diagnosed with lung cancer 13 years ago in [facility]. She states she was told "it's the type of lung cancer 60 year olds get." She states she was told at that time no treatment was warranted, she was given oxycodones for 3 months and no longer required follow up. Discussed with patient this is unusual for a lung cancer diagnosis at age 29. However, she is unsure on further details. She gets serial CT scans to monitor. From records, she has lung nodules that have been unchanged. Case Discussed With Case Discussed With: Patient's case was discussed with the ER Physicians, Dr. Nichole. [facility] Medical History BMI 45.0-49.9, adult Z68.42 - BODY MASS INDEX (BMI) 45.0-49.9, ADULT (ICD-10) BMI 45.0-49.9, adult Z68.42 - Body mass index (BMI) 45.0-49.9, adult (ICD-10) Cancer of lung C34.90 - Malignant neoplasm of unspecified part of unspecified bronchus or lung (ICD-10) Diabetes mellitus E11.9 - Type 2 diabetes mellitus without complications (ICD-10) Influenza vaccination declined Z28.21 - Immunization not carried out because of patient refusal (ICD-10) Renal cyst N28.1 - Cyst of kidney, acquired (ICD-10) RUQ pain R10.11 - Right upper quadrant pain (ICD-10) Shortness of breath R06.02 - Shortness of breath (ICD-10) Suprapubic pain R10.30 - LOWER ABDOMINAL PAIN, UNSPECIFIED (ICD-10) Suspected 2019 novel coronavirus infection Z20.828 - Contact with and (suspected) exposure to other viral communicable diseases (ICD-10) Tachycardia R00.0 - Tachycardia, unspecified (ICD-10) Type 2 diabetes mellitus with hemoglobin A1c goal of less than 7.0% E11.9 - Type 2 diabetes mellitus without complications (ICD-10) URI with cough and congestion J06.9 - Acute upper respiratory infection, unspecified (ICD-10) Surgical History D & C History of section Z98.891 - History of uterine scar from previous surgery (ICD-10) Family History Mother Diabetes Cardiac disease Allergies Hyperthyroidism Hypertension Breast cancer FATHER Cardiac disease Hypertension BROTHER Diabetes mgm GI problem Diabetes Cardiac disease Blood disease Cancer Hypertension pgm Diabetes Cancer pgf Diabetes Social History Smoking and tobacco status: Never smoker Second hand smoke exposure: Yes Alcohol intake: never Substance use type: does not use Phyllis/pentecostalism: MORMONISM Special phyllis needs: No Agree to transfusion: Yes Adopted: No Caregiver/support person: No Foster care: No Household members: significant other and children Housing: house Lives independently: Yes Daycare: no daycare Number of children: 4 Number of grandchildren: 2 Highest education level completed: some college, no degree Financial difficulty paying for basics: not very hard service: No penitentiary: Yes Current occupational status: employed Current occupation: [employer] Leisure activites: exercise and music History of recent travel: No Sexually active: Yes Do you think of yourself as: straight/heterosexual Current gender identity: female Seatbelt use: always Helmet use: No Drives intoxicated or rides with intoxicated tractor driver: No Water heater temperature set < 120 degrees: Yes Working smoke detector in home: Yes Fire extinguisher in home: Yes Carbon monoxide detector in home: Yes Firearms in home: No Allergies Allergies Allergy/AdvReac Type Severity Reaction Status Date / Time No Known Drug Intolerances AdvReac Unknown Verified 10/24/22 01:34 Current Medications Home Medications blood-glucose meter #1 ea 06/12/20 [Rx Confirmed 10/24/22 Last Taken Unknown] albuterol sulfate 90 mcg/actuation aerosol inhaler (Ventolin HFA) 2 puff inhalation Q4H PRN cough #18 grams 08/27/20 [Rx Confirmed 10/24/22 Last Taken Unknown] lancets 33 gauge (SilverPushuch Delica Plus Lancet) #100 ea 11/04/20 [Rx Confirmed 10/24/22 Last Taken Unknown] insulin glargine 100 unit/mL (3 mL) subcutaneous pen (Lantus Solostar U-100 Insulin) 35 unit (0.35 mL) subcut QDAY #15 mL 07/28/21 [Rx Confirmed 10/24/22 Last Taken Unknown] pen needle, diabetic 32 gauge x 1/4" (BD Ultra-Fine Micro Pen Needle) #100 ea 07/28/21 [Rx Confirmed 10/24/22 Last Taken Unknown] blood sugar diagnostic #100 ea 09/21/21 [Rx Confirmed 10/24/22 Last Taken Unknown] lisinopril 20 mg tablet 20 mg PO DAILY for high blood pressure #90 tabs 08/31/22 [Rx Confirmed 10/24/22 Last Taken Unknown] amitriptyline 10 mg tablet 10 mg PO QDAY #30 tabs 09/07/22 [Rx Confirmed 10/24/22 Last Taken Unknown] metformin 1,000 mg tablet See Rx Instructions .Route .COMPLEX #60 tabs 09/07/22 [Rx Confirmed 10/24/22 Last Taken Unknown] insulin aspart U-100 100 unit/mL (3 mL) subcutaneous pen (Novolog FlexPen U-100 Insulin aspart) 2 - 10 unit (0.02 - 0.1 mL) subcut TID #15 mL 09/14/22 [Rx Confirmed 10/24/22 Last Taken Unknown] sumatriptan succinate 100 mg tablet See Rx Instructions PO .COMPLEX #12 tabs 09/14/22 [Rx Confirmed 10/24/22 Last Taken Unknown] tizanidine 4 mg capsule 4 mg PO Q8H PRN muscle spasticity #90 caps 09/14/22 [Rx Confirmed 10/24/22 Last Taken Unknown] mupirocin 2 % topical ointment 1 applic topical TID #22 grams 09/28/22 [Rx Confirmed 10/24/22 Last Taken Unknown] gabapentin 300 mg capsule 600 mg PO TID 10/24/22 [History Confirmed 10/24/22 Last Taken Unknown] Home Acetaminophen (Acetaminophen 325 Mg Tablet) 650 mg PO Q4H PRN PRN Reason: Mild Pain Last Admin: 10/24/22 11:14 Dose: 650 mg Albuterol Sulfate (Albuterol Sulfate (Ventolin Hfa) 18 Gm 1 Puff With Spacer) 2 puff IH Q4H PRN PRN Reason: Cough Albuterol Sulfate (Albuterol Sulfate 0.083% Vial.Neb) 2.5 mg NEB RTTID [facility] Last Admin: 10/24/22 13:10 Dose: 2.5 mg Amitriptyline HCl (Amitriptyline Hcl 10 Mg Tablet) 10 mg PO DAILY [facility] Last Admin: 10/24/22 09:39 Dose: 10 mg Azithromycin (Azithromycin 250 Mg Tablet) 500 mg PO DAILY [facility] Stop: 10/28/22 08:59 Enoxaparin Sodium (Enoxaparin Sodium 40 Mg/0.4 Ml Syr) 40 mg SUBCUT DAILY [facility] Last Admin: 10/24/22 09:40 Dose: 40 mg Gabapentin (Gabapentin 300 Mg Capsule) 600 mg PO TID [facility] Last Admin: 10/24/22 09:39 Dose: 600 mg Sodium Chloride (Sodium Chloride) 1,000 mls @ 100 mls/hr IV .Q10H STA Stop: 10/24/22 14:48 Last Admin: 10/24/22 05:00 Dose: 100 mls/hr CEFTRIAXONE/D5W 1 GM PREMIX (Rocephin 1 Gm/50 Ml D5w) 1 gm in 50 mls @ 75 mls/hr IV DAILY [facility] Stop: 10/28/22 08:59 Insulin Glargine (Insulin Glargine,Hum.Rec.Anlog 100 Units/Ml) 35 unit SUBCUT DAILY [facility] Last Admin: 10/24/22 09:40 Dose: 35 unit Insulin Human Lispro (Insulin Lispro 100 Unit/Ml (3 Ml) Vial) 0 unit SUBCUT PRN PRN; Protocol PRN Reason: Hyperglycemia Last Admin: 10/24/22 11:59 Dose: 6 unit Lisinopril (Lisinopril 10 Mg Tablet) 20 mg PO DAILY [facility] Last Admin: 10/24/22 09:39 Dose: 20 mg Ondansetron HCl (Ondansetron Hcl/Pf 4 Mg/2 Ml Sdv) 4 mg IVP Q6H PRN PRN Reason: Nausea / Vomiting Sodium Chloride (0.9% Sodium Chloride 10 Ml Disp.Syrin) 1 syr IVF PRN PRN PRN Reason: To flush IV Tizanidine HCl (Tizanidine Hcl 4 Mg Tablet) 4 mg PO Q8H PRN PRN Reason: Pain Discontinued Medications Acetaminophen (Acetaminophen 325 Mg Tablet) 650 mg PO ONCE STA Stop: 10/24/22 01:47 Last Admin: 10/24/22 02:08 Dose: 650 mg Albuterol Sulfate (Albuterol Sulfate 0.083% Vial.Neb) 2.5 mg NEB RTQ6H [facility] Aspirin (Aspirin 81 Mg Tab.Chew) 324 mg PO ONCE STA Stop: 10/24/22 01:48 Last Admin: 10/24/22 02:07 Dose: 324 mg Sodium Chloride (Sodium Chloride) 1,000 mls @ 1,000 mls/hr IV BOLUS STA Stop: 10/24/22 02:41 Last Admin: 10/24/22 02:11 Dose: 1,000 mls/hr CEFTRIAXONE/D5W 1 GM PREMIX (Rocephin 1 Gm/50 Ml D5w) 1 gm in 50 mls @ 75 mls/hr IV ONCE ONE Stop: 10/24/22 02:21 Last Admin: 10/24/22 02:11 Dose: 75 mls/hr Sodium Chloride (Sodium Chloride) 1,000 mls @ 1,000 mls/hr IV BOLUS STA Stop: 10/24/22 03:45 Last Admin: 10/24/22 03:52 Dose: 1,000 mls/hr Azithromycin 500 mg/ Sodium (Chloride) 250 mls @ 125 mls/hr IV ONCE STA Stop: 10/24/22 06:49 Last Admin: 10/24/22 05:00 Dose: 125 mls/hr MAGNESIUM SULFATE IN WATER (Magnesium Sulf 2 G/50 Ml Bag) 2 gm in 50 mls @ 25 mls/hr IV ONCE ONE Stop: 10/24/22 11:29 Last Admin: 10/24/22 09:29 Dose: 25 mls/hr Ketorolac Tromethamine (Ketorolac Tromethamine 30 Mg/Ml Vial) 30 mg IVP ONCE ONE Stop: 10/24/22 02:14 Last Admin: 10/24/22 07:12 Dose: Not Given Methylprednisolone Sodium Succinate (Methylprednisolone Sod Succ/Pf 40 Mg/Ml Vial) 40 mg IVP ONCE ONE Stop: 10/24/22 11:25 Last Admin: 10/24/22 11:46 Dose: 40 mg Ondansetron HCl (Ondansetron Hcl/Pf 4 Mg/2 Ml Sdv) 4 mg IVP ONCE STA Stop: 10/24/22 01:57 Last Admin: 10/24/22 02:10 Dose: 4 mg Ondansetron HCl (Ondansetron Hcl/Pf 4 Mg/2 Ml Sdv) 4 mg IVP ONCE STA Stop: 10/24/22 02:14 Last Admin: 10/24/22 07:13 Dose: Not Given Review of Systems Constitutional: Reports Fever, Fatigue, Chills and Weakness Head: Reports Normocephalic and Atraumatic Eyes: Denies Vision Changes Ears: Denies Pain or Drainage Nose: Denies Post Nasal Drip or Congestion Mouth: Denies Sores Throat: Reports Sore Throat and Pain; Denies Difficulty Swallowing Cardiovascular: Reports Chest pain, Chest Pressure and High Blood Pressure; Denies Left arm pain Respiratory: Reports Cough and Pain with breathing; Denies Shortness of air Gastrointestinal: Reports Nausea, Vomiting and Diarrhea (chronic) Genitourinary: Denies Dysuria or Frequency Neurological: Reports Numbness (left three fingers); Denies Headache, Dizziness, Syncope or Tremor Physical examination Most Recent Vital Signs: Most Recent Vital Signs Temperature 98.1 F 10/24/22 10:00 Temperature Source Oral 10/24/22 10:00 Temperature Source Infrared 10/24/22 04:35 Pulse Rate 102 H 10/24/22 10:00 Respiratory Rate 19 10/24/22 10:00 Blood Pressure 144/88 H 10/24/22 10:00 Blood Pressure Mean 106 10/24/22 10:00 Blood Pressure Left Arm 148/98 10/24/22 05:57 Blood Pressure Location Left Radial Artery 10/24/22 10:00 Blood Pressure Position Supine 10/24/22 10:00 O2 Sat by Pulse Oximetry 96 10/24/22 10:00 Oxygen Delivery Method Room Air 10/24/22 10:00 Height 5 ft 8 in 10/24/22 05:57 Weight 296 lb 10/24/22 05:57 Telemetry Type Remote Telemetry 10/24/22 06:58 Telemetry Monitoring Continues 10/24/22 06:58 Irregular Telemetry Rate (Approximate) 100-110 BPM 10/24/22 06:20 Telemetry Heart Rate 91 10/24/22 06:58 EKG LA Interval 0.16 10/24/22 06:58 EKG QRS Interval 0.06 10/24/22 06:58 EKG QT Interval 0.30 10/24/22 06:20 Telemetry Strip Reading SR 10/24/22 06:58 Appearance: Positive Well-appearing, Well-nourished, No Apparent Distress, Alert and Oriented x3 and Obese Skin: Positive [place], Warm and Good Turgor; Negative Rashes HEENT: Positive Normocephalic and Atraumatic Neck: Positive Supple and Midline Trachea Chest/Lungs: Positive Symmetrical With Equal Breath Sounds and Clear to Auscultation Bilaterally; Negative Rales, Rhonci or Wheezes Heart: Positive RRR GI/: Positive Soft, Nontender and Bowel Sounds Normal Musculoskeletal: Positive Normal Gait and Station Extremities: Positive Edema (1+ pitting edema klever lower ext, chronic per patient ) Neurological: Positive Cranial Nerves Intact, Alert, Oriented and Muscle Strength 5/5 in Upper and Lower Extremities Bilaterally Psychiatric: Positive Oriented x4, Appropriate Mood and Appropriate Affect Labs This Visit Labs This Visit: Labs This Visit 10/24/22 10/24/22 10/24/22 01:40 02:00 05:00 WBC 18.10 H 15.57 H RBC 4.52 4.33 Hgb 13.8 13.3 Hct 39.7 38.7 MCV 87.8 89.4 MCH 30.5 30.7 MCHC 34.8 34.4 RDW Coeff of Neha 12.3 12.4 Plt Count 205 189 Immature Gran % (Auto) 0.4 0.3 Neut % (Auto) 84.1 H 84.8 H Lymph % (Auto) 8.3 L 8.0 L Payne % (Auto) 6.6 6.4 Eos % (Auto) 0.4 0.3 Baso % (Auto) 0.2 0.2 Neut # (Auto) 15.2 H 13.2 H Lymph # (Auto) 1.5 1.3 Payne # (Auto) 1.2 1.0 Eos # (Auto) 0.1 0.1 Baso # (Auto) 0.0 0.0 Immature Gran # (Auto) 0.1 0.1 PT 9.3 INR 0.88 APTT 25.2 Sodium 130.8 L 132.3 L Potassium 3.78 3.79 Chloride 99.7 103.4 Carbon Dioxide 23.2 23.9 Anion Gap 11.68 8.79 BUN 12.8 11.3 Creatinine 0.58 L 0.53 L Estimated GFR (MDRD) 113.00 126.00 BUN/Creatinine Ratio 22.06 21.32 Glucose 381.7 H 331.0 H D Lactic Acid 2.49 H 1.07 D Calcium 9.13 8.29 L Magnesium 1.53 L Total Bilirubin 0.52 AST 23.0 ALT 23.1 Alkaline Phosphatase 129.6 H Troponin I < 0.012 < 0.012 Total Protein 6.99 Albumin 3.94 Globulin 3.05 Albumin/Globulin Ratio 1.29 D-Dimer 312.63 Urine Color Yellow Urine Clarity Clear Urine pH 5.5 Ur Specific Anton 1.010 Urine Protein Negative Urine Glucose (UA) 3+ H Urine Ketones Negative Urine Blood 1+ H Urine Nitrite Negative Urine Bilirubin Negative Urine Urobilinogen 0.2 Ur Leukocyte Esterase Negative Urine Microscopic RBC 10-20 Ur Squamous Epith Cells 5-10 Urine Bacteria 1+ Urine Test Negative Acetone, Qual None Influ A Molecular Assay Negative by naat Influ B Molecular Assay Negative by naat SARS CoV-2 RNA Rapid MARIANO Negative Microbiology This Visit 10/24/22 01:40 Throat Group A Strep Molecular Assay - Final Imaging Imagining: EXAM: PORTABLE CHEST HISTORY: Cough COMPARISON: Two-view chest 10/20/2021 FINDINGS: The cardiomediastinal silhouette is stable. The lungs are clear bilaterally. There are no acute osseous abnormalities. IMPRESSION: No evidence of active pulmonary disease or interval change EXAM: CT CHEST WITH CONTRAST History: Chest pain Technique: [address] of the chest following intravenous contrast FINDINGS: Lung windows show no pulmonary parenchymal abnormality. Normal heart, great vessels and pericardium. No chest wall abnormality. No chest wall abnormality. No abnormalities of the upper abdomen. Impression: 1. No acute findings of the chest Review Statement Review Statement: I have independently reviewed and interpreted the labs/EKGs/imaging that were ordered by the ER provider. I have reviewed all outside records that are available currently in our EMR including imaging/notes/labs from previous visits. Plan Plan: A&P: 1. Acute bronchitis with tachycardia and leukocytosis - WBC count improved. Tachycardia improved. Continue rocephin and azith. Solumedrol 40 mg IVP x1 ordered today. Albuterol nebs q6hrs. 2. Hypomagnesemia - 1.5 today. 2 gm mag rider ordered. Repeat in AM. 3. Chest pain - Likely due to underlying illness. Trop and EKGs normal. 4. DMT2, insulin dependent - Continue home meds. Humalog SS. Accuchecks achs. Diabetic diet. 5. Hypertension - Continue home meds 6. Chronic pain - Continue home meds. DVT Prophylaxis: Lovenox Time Spent: Greater than 80 minutes spent with patient, 50% of the time spent with this patient was devoted to counseling and coordination of care. [facility] minutes spent discussing advance care planning. FULL CODE Admit to: Obs Discussed Plan of Care with Dr. Pako Manjarrez. Medications Medication Orders: Medications Ordered Category Date Time Status 0.9 % Sodium Chloride [Saline Flush] MED[facility] 10/24/22 01:42 Active 1 syr IVF PRN PRN Acetaminophen [Tylenol] MEDS 10/24/22 08:56 Active 650 mg PO Q4H PRN Albuterol Inhaler(with Spacer) [Ventolin Hfa (Per Puff- MEDS 10/24/22 08:58 Active with Spacer)] 2 puff IH Q4H PRN Albuterol Sulfate 0.083% Neb [Albuterol 0.083% Neb] MEDS 10/24/22 12:00 Ordered 2.5 mg NEB RTQ6H Amitriptyline HCl [Elavil] [facility] 10/24/22 09:00 Active 10 mg PO DAILY Enoxaparin Sodium [Lovenox] [facility] 10/24/22 09:00 Active 40 mg SUBCUT DAILY Gabapentin [Neurontin] [facility] 10/24/22 09:00 Active 600 mg PO TID Insulin Glargine,Hum.rec.anlog [Lantus] [facility] 10/24/22 09:00 Active 35 unit SUBCUT DAILY Insulin Lispro [Humalog] [facility] 10/24/22 09:00 Active See Protocol SUBCUT PRN PRN Lisinopril [Zestril] [facility] 10/24/22 09:00 Active 20 mg PO DAILY Magnesium Sulfate in Water [Magnesium Sulf 2 G/50 ml [facility] 10/24/22 09:30 Active Bag] 2 gm in 50 ml IV ONCE Methylprednisolone Sod Succ/Pf [Solu-Medrol 40 mg] [facility] 10/24/22 11:24 Once 40 mg IVP ONCE ONE Ondansetron HCl/Pf [Zofran 4 mg/2 ml] [facility] 10/24/22 08:56 Active 4 mg IVP Q6H PRN Sodium Chloride 0.9% [Sodium Chloride] 1,000 ml [facility] 10/24/22 04:49 Active IV 100 mls/hr Tizanidine HCl [Zanaflex] [facility] 10/24/22 09:08 Active 4 mg PO Q8H PRN
[2022-10-24] MEDS: HUMALOG SUBCUT PRN ×3 (11:59→20:21)
[2022-10-24] MEDS ORDERED: ALBUTEROL 0.083% NEB NEB SCH (12:00)
[2022-10-24] MEDS: ALBUTEROL 0.083% NEB NEB SCH ×2 (13:10→19:30)
[2022-10-25] MEDS: TYLENOL PO PRN (04:30)
[2022-10-25] MEDS: ALBUTEROL 0.083% NEB NEB SCH (05:00)
[2022-10-25 05:12] LABS: BASOPHILS % (AUTO) 0.1 % (0.0-3.0); EOSINOPHILS % (AUTO) 0.1 % (0.0-7.0); HEMATOCRIT 38.8 % (37.0-47.0); IMMATURE GRANULOCYTE # (AUTO) 0.1 (0.0-1.0); IMMATURE GRANULOCYTE % (AUTO) 0.8 % (0.0-5.0); LYMPHOCYTES # (AUTO) 1.2 K/uL (0.60-3.4); LYMPHOCYTES % (AUTO) 7.3 (10.0-50.0); MEAN CORPUSCULAR HEMOGLOBIN 30.2 pg (27.0-31.0); MEAN CORPUSCULAR HGB CONC 33.5 (31.8-35.4); MONOCYTES # (AUTO) 1.1 K/uL (0.4-2.0); MONOCYTES % (AUTO) 6.6 (0-10); NEUTROPHILS # (AUTO) 14.2 K/ul (2.0-6.9); NEUTROPHILS % (AUTO) 85.1 % (42.2-75.2); PLATELET COUNT 221 10^3/uL (140-440); RDW COEFFICIENT OF VARIATION 12.4 % (11.6-14.8); RED BLOOD COUNT 4.31 10^6/ul (4.20-5.40); WHITE BLOOD COUNT 16.62 K/ul (4.6-10.2)
[2022-10-25 05:24] LABS: ALANINE AMINOTRANSFERASE 23.1 U/L (0-35); ALBUMIN 3.73 g/dL (3.5-5.0); ALKALINE PHOSPHATASE 139.6 U/L (38-126); ASPARTATE AMINO TRANSFERASE 22.6 U/L (14-36); BILIRUBIN,TOTAL 0.36 mg/dL (0.2-1.3); BLOOD UREA NITROGEN 15.1 mg/dL (7-17); CALCIUM 9.29 mg/dL (8.4-10.2); CARBON DIOXIDE 26.3 mmol/L (22-30.0); CHLORIDE 104.6 mmol/L (98-107); CREATININE 0.63 mg/dL (0.60-1.30); GLUCOSE 353.2 mg/dL (74-106); MAGNESIUM 2.04 mg/dL (1.6-2.3); POTASSIUM 4.66 mmol/L (3.5-5.1); TOTAL PROTEIN 7.04 g/dL (6.3-8.2)
[2022-10-25 05:29] VITALS: BP 157/89; RESP 20; TEMP 98
[2022-10-25] MEDS: HUMALOG SUBCUT PRN (05:40)
[2022-10-25] MEDS ORDERED: MUCINEX PO ONE (08:18)
[2022-10-25] MEDS: NEURONTIN PO SCH (08:35)
[2022-10-25] MEDS: ELAVIL PO SCH (08:35)
[2022-10-25] MEDS: ZESTRIL PO SCH (08:36)
[2022-10-25] MEDS: LOVENOX SUBCUT SCH (08:43)
[2022-10-25] MEDS: LANTUS SUBCUT SCH (08:47)
[2022-10-25] MEDS ORDERED: ROCEPHIN 1 GM/50 ML D5W 1 GM/50 ML BAG IV SCH (09:00)
[2022-10-25] MEDS ORDERED: ZITHROMAX PO SCH (09:00)
--- NOTE | 2022-10-25 09:24 | DCSUM ---
Admission Date Admission Date: 10/24/22 Discharge Date Discharge Date: 10/25/22 Admission Diagnosis Admission Diagnosis: Acute Bronchitis Discharge Diagnosis Discharge Diagnosis: Acute Bronchitis Hospital Provider Hospital Provider: MYA HOOD, [facility] Primary Care Physician Primary Care Physician: CHARLEEN NEWMAN MD Summary of History and Physical Summary of History and Physical: Patient is a 42 year old female with pmhx of hypertension, DMT2 insulin dependent, migraines, and history of lung cancer/abnormality who presents to ER for sore throat, cough and chest pain since yesterday. Patient overall doesn't feel well. Reports a fever yesterday. Denies sob. States she had n/v yesterday as well. Denies abd pain. Has diarrhea, but states that is chronic. In the ER she had an elevated wbc, tachycardic, and elevated LA. This improved with fluids and abx. Lactic normalized. However, WBC still 15.5. Covid, flu, and strep negative. CXR and CT chest negative. Mag low at 1.5. She received fluids, rocephin, and azithromycin. Admitted to obs on medsur. Patient states she was diagnosed with lung cancer 13 years ago in [facility]. She states she was told "it's the type of lung cancer 60 year olds get." She states she was told at that time no treatment was warranted, she was given oxycodones for 3 months and no longer required follow up. Discussed with patient this is unusual for a lung cancer diagnosis at age 29. However, she is unsure on further details. She gets serial CT scans to monitor. From records, she has lung nodules that have been unchanged. Hospital Course Subjective: No events or fever over night. States she feels about the same. Congested and sore throat present. Wanting to go home. Over course of stay received rocephin and azithromycin for abx coverage. Given solumedrol and albuterol nebs. Magnesium was initially low and replaced. Chest pain resolved. WBC count improved. Lactic acid negative upon hydration and repeat. Addendum 10/26/22 Urine culture positive for Gram negative rods, E. Coli. Patient did not exhibit any s/sx of UTI during admission. Likely asymptomatic bacteruria. Appearance: Pleasant, No Apparent Distress, Alert, Well-appearing and Well- nourished HEENT: MMM and Supple CVS: No Murmur, No Rubs, No Gallop and No JVD Abdomen: Soft, Non-Tender and No Distention Respiratory: No Dyspnea Extremities: No Calf Tenderness and Other (+1 edema, chronic) Vital Signs: Most Recent Vital Signs Temperature 98 F 10/25/22 05:28 Temperature Source Oral 10/25/22 05:28 Temperature Source Infrared 10/24/22 04:35 Pulse Rate 95 10/25/22 05:28 Respiratory Rate 20 10/25/22 05:28 Blood Pressure 157/89 H 10/25/22 05:28 Blood Pressure Mean 111 10/25/22 05:28 Blood Pressure Left Arm 148/98 10/24/22 05:57 Blood Pressure Location Left Arm 10/25/22 05:28 Blood Pressure Position Supine 10/25/22 05:28 O2 Sat by Pulse Oximetry 95 10/25/22 05:28 Oxygen Delivery Method Room Air 10/25/22 07:58 Height 5 ft 8 in 10/24/22 05:57 Weight 296 lb 10/24/22 05:57 Telemetry Type Remote Telemetry 10/25/22 07:00 Telemetry Monitoring Continues 10/25/22 07:00 Irregular Telemetry Rate (Approximate) 100-110 BPM 10/24/22 06:20 Telemetry Heart Rate 86 10/25/22 07:00 EKG MT Interval 0.15 10/25/22 07:00 EKG QRS Interval 0.07 10/25/22 07:00 EKG QT Interval 0.30 10/24/22 06:20 Telemetry Strip Reading NSR 10/25/22 07:00 Lab Results Last 24 Hours: 10/25/22 05:00 WBC 16.62 H RBC 4.31 Hgb 13.0 Hct 38.8 MCV 90.0 MCH 30.2 MCHC 33.5 RDW Coeff of Neha 12.4 Plt Count 221 Immature Gran % (Auto) 0.8 Neut % (Auto) 85.1 H Lymph % (Auto) 7.3 L Pepin % (Auto) 6.6 Eos % (Auto) 0.1 Baso % (Auto) 0.1 Neut # (Auto) 14.2 H Lymph # (Auto) 1.2 Pepin # (Auto) 1.1 Eos # (Auto) 0.0 Baso # (Auto) 0.0 Immature Gran # (Auto) 0.1 Sodium 134.0 L Potassium 4.66 Chloride 104.6 Carbon Dioxide 26.3 Anion Gap 7.76 BUN 15.1 Creatinine 0.63 Estimated GFR (MDRD) 103.00 BUN/Creatinine Ratio 23.96 Glucose 353.2 H Calcium 9.29 Magnesium 2.04 Total Bilirubin 0.36 AST 22.6 ALT 23.1 Alkaline Phosphatase 139.6 H Total Protein 7.04 Albumin 3.73 Globulin 3.31 Albumin/Globulin Ratio 1.12 Discharge Instructions Discharge Planning: Discharge Planning > 40 minutes Azithromycin 500 mg PO x 3 days Medrol Dose pack as directed - monitor blood glucose closely due to steroid causing elevation of blood sugars Activity as tolerated Diabetic diet Medications Given This Visit: Medications Generic Name Dose Route Start Last Admin Trade Name Freq PRN Reason Stop Dose Admin Acetaminophen 650 mg 10/24/22 08:56 10/25/22 04:30 Acetaminophen 325 Mg Tablet PO 650 mg Q4H PRN Administration Mild Pain Albuterol Sulfate 2 puff 10/24/22 08:58 Albuterol Sulfate (Ventolin Hfa) 18 Gm 1 Puff With Spacer IH Q4H PRN Cough Albuterol Sulfate 2.5 mg 10/24/22 14:00 10/25/22 05:00 Albuterol Sulfate 0.083% Vial.Neb NEB 2.5 mg RTTID ANUSHA Administration Amitriptyline HCl 10 mg 10/24/22 09:00 10/25/22 08:35 Amitriptyline Hcl 10 Mg Tablet PO 10 mg DAILY ANUSHA Administration Azithromycin 500 mg 10/25/22 09:00 10/25/22 08:35 Azithromycin 250 Mg Tablet PO 10/28/22 08:59 500 mg DAILY ANUSHA Administration Enoxaparin Sodium 40 mg 10/24/22 09:00 10/25/22 08:43 Enoxaparin Sodium 40 Mg/0.4 Ml Syr SUBCUT 40 mg DAILY ANUSHA Administration Gabapentin 600 mg 10/24/22 09:00 10/25/22 08:35 Gabapentin 300 Mg Capsule PO 600 mg TID ANUSHA Administration CEFTRIAXONE/D5W 1 GM PREMIX 1 gm in 50 mls @ 75 mls/hr 10/25/22 09:00 10/25/22 08:38 Rocephin 1 Gm/50 Ml D5w IV 10/28/22 08:59 75 mls/hr DAILY ANUSHA Administration Insulin Glargine 35 unit 10/24/22 09:00 10/25/22 08:47 Insulin Glargine,Hum.Rec.Anlog 100 Units/Ml SUBCUT 35 unit DAILY ANUSHA Administration Insulin Human Lispro 0 unit 10/24/22 09:00 10/25/22 05:40 Insulin Lispro 100 Unit/Ml (3 Ml) Vial SUBCUT 8 unit PRN PRN Administration Hyperglycemia Protocol Lisinopril 20 mg 10/24/22 09:00 10/25/22 08:36 Lisinopril 10 Mg Tablet PO 20 mg DAILY ANUSHA Administration Ondansetron HCl 4 mg 10/24/22 08:56 Ondansetron Hcl/Pf 4 Mg/2 Ml Sdv IVP Q6H PRN Nausea / Vomiting Sodium Chloride 1 syr 10/24/22 01:42 10/25/22 04:30 0.9% Sodium Chloride 10 Ml Disp.Syrin IVF 1 syr PRN PRN Administration To flush IV Tizanidine HCl 4 mg 10/24/22 09:08 Tizanidine Hcl 4 Mg Tablet PO Q8H PRN Pain Medications Given This Visit: Medications at Discharge (Home Meds & RX) blood-glucose meter #1 ea 06/12/20 albuterol sulfate 90 mcg/actuation aerosol inhaler (Ventolin HFA) 2 puff inhalation Q4H PRN cough #18 grams 08/27/20 lancets 33 gauge (OneTouch Delica Plus Lancet) #100 ea 11/04/20 insulin glargine 100 unit/mL (3 mL) subcutaneous pen (Lantus Solostar U-100 Insulin) 35 unit (0.35 mL) subcut QDAY #15 mL 07/28/21 pen needle, diabetic 32 gauge x 1/4" (BD Ultra-Fine Micro Pen Needle) #100 ea 07/28/21 blood sugar diagnostic #100 ea 09/21/21 lisinopril 20 mg tablet 20 mg PO DAILY for high blood pressure #90 tabs 08/31/22 amitriptyline 10 mg tablet 10 mg PO QDAY #30 tabs 09/07/22 metformin 1,000 mg tablet See Rx Instructions .Route .COMPLEX #60 tabs 09/07/22 insulin aspart U-100 100 unit/mL (3 mL) subcutaneous pen (Novolog FlexPen U-100 Insulin aspart) 2 - 10 unit (0.02 - 0.1 mL) subcut TID #15 mL 09/14/22 sumatriptan succinate 100 mg tablet See Rx Instructions PO .COMPLEX #12 tabs 09/14/22 tizanidine 4 mg capsule 4 mg PO Q8H PRN muscle spasticity #90 caps 09/14/22 mupirocin 2 % topical ointment 1 applic topical TID #22 grams 09/28/22 gabapentin 300 mg capsule 600 mg PO TID 10/24/22 Discharge Plan Discharge Discharge Orders: Discharge Patient (ONCE); Ordered 10/25/22 Ordered By: HAILEE LAU Activity Restrictions/Additional Instructions: Diabetic Diet Activity as tolerated. NEW MEDICATIONS: Azithromycin 500 mg PO take by mouth daily for 3 days Medrol dose pack PO take by mouth as directed - this will raise your blood sugar. Monitor closely. Resume home medications as precribed. YOU HAVE A FOLLOW UP APPOINTMENT ON TUESDAY, October AT 9:[address] GILLIS'S OFFICE, CARMELO GERONIMO NP. SHOULD YOU HAVE ANY QUESTIONS OR NEED TO RESCHEDULE YOU CAN CONTACT THEIR OFFICE AT [phone]. Instructions: Acute Bronchitis (GEN) Care Plan Goals: Problem: Altered Blood Glucose Level Goal: Maintain blood glucose level Within Normal Limits Instructions: Diet as ordered Diet consult if indicated Monitor accucheck levels Monitor signs/symptoms of altered glucose Patient Disposition: HOME SELF-CARE Prescriptions: New azithromycin 500 mg tablet See Rx Instructions .ROUTE .COMPLEX Qty: 3 0RF Rx Instructions: For 500 mg dose pack: take 500 mg once daily for 3 days methylprednisolone [Medrol (Ke)] 4 mg tablets,dose pack See Rx Instructions .ROUTE .COMPLEX Qty: 21 0RF Rx Instructions: orally per package directions Continued (DME) blood-glucose meter Kit See Rx Instructions .ROUTE .MEDSUPPLY Qty: 1 0RF Rx Instructions: As directed albuterol sulfate [Ventolin HFA] 90 mcg/actuation HFA aerosol inhaler 2 puff IH Q4H PRN (Reason: cough) Qty: 18 2RF (DME) lancets [OneTouch Delica Plus Lancet] 33 gauge misc See Rx Instructions .ROUTE .MEDSUPPLY Qty: 100 5RF Rx Instructions: As directed fasting daily (DME) blood sugar diagnostic Strip See Rx Instructions .ROUTE .MEDSUPPLY Qty: 100 5RF Rx Instructions: As directed daily fasting lisinopril 20 mg tablet 20 mg PO DAILY Qty: 90 1RF amitriptyline 10 mg tablet 10 mg PO QDAY Qty: 30 0RF metformin 1,000 mg tablet See Rx Instructions .ROUTE .COMPLEX Qty: 60 1RF Dose Instruction: TAKE 1 TABLET BY MOUTH TWICE DAILY Rx Instructions: TAKE 1 TABLET BY MOUTH TWICE DAILY sumatriptan succinate 100 mg tablet See Rx Instructions PO .COMPLEX Qty: 12 3RF Rx Instructions: take 1 tab at onset of headache; if no relief may repeat 1 tab in 2hr; max = 2 tabs/24 hrs PO; mupirocin 2 % ointment 1 applic topical TID Qty: 22 2RF gabapentin 300 mg capsule 600 mg PO TID Patient Comments: TAKE 1 CAPSULE BY MOUTH EVERY NIGHT AT BEDTIME X 2 WEEKS THEN INCREASE TO 1 CAPSULE BY MOUTH TWICE DAILY IF TOLERATED insulin glargine [Lantus Solostar U-100 Insulin] 100 unit/mL (3 mL) insulin pen 35 unit subcut QDAY Qty: 15 5RF Rx Instructions: 35 units daily resume today. (DME) pen needle, diabetic [BD Ultra-Fine Micro Pen Needle] 32 gauge x 1/4" needle See Rx Instructions .ROUTE .MEDSUPPLY Qty: 100 12RF Rx Instructions: As directed daily fasting. tizanidine 4 mg capsule 4 mg PO Q8H PRN (Reason: muscle spasticity) Qty: 90 1RF insulin aspart U-100 [Novolog FlexPen U-100 Insulin] 100 unit/mL (3 mL) insulin pen 2 - 10 unit subcut TID Qty: 15 5RF Rx Instructions: 2 units base + 1 unit correction for every 50 glucose above 150 glucose. If not eating, do not take insulin. Did you review [place] [employer] for ALL controlled substances?: No Discussed opioids are addictive and Narcan is available by prescription or from pharmacy.: No Condition: Stable
== END 2022-10-25 10:55 | disposition home or self-care (01) ==
LOC: ED 01:25 → MEDSURG B 01:25
PROVIDERS: ADMIT Hospitalist; ATTEND Nurse Practitioner Family
DX: Z20.822 Contact with and (suspected) exposure to COVID-19; I10 Essential (primary) hypertension; R05.9 Cough, unspecified; R00.0 Tachycardia, unspecified; J20.9 Acute bronchitis, unspecified; B96.20 Unspecified Escherichia coli [E. coli] as the cause of diseases classified elsewhere; R50.9 Fever, unspecified; R91.1 Solitary pulmonary nodule; E11.65 Type 2 diabetes mellitus with hyperglycemia; R06.02 Shortness of breath; E66.9 Obesity, unspecified; R82.71 Bacteriuria; Z79.4 Long term (current) use of insulin; J02.9 Acute pharyngitis, unspecified; Z68.42 Body mass index [BMI] 45.0-49.9, adult; Z51.81 Encounter for therapeutic drug level monitoring; C34.90 Malignant neoplasm of unspecified part of unspecified bronchus or lung; R60.0 Localized edema; D72.829 Elevated white blood cell count, unspecified